=== PATIENT | male | born 1960 | race Caucasian/White ===

== ENCOUNTER → 2016-12-09 | Outpatient (CLI) | payer MEDICARE | LOC: RAD 09:41 | PROVIDERS: ATTEND Specialist | DX: C43.9 Malignant melanoma of skin, unspecified (principal) | CPT/HCPCS: 71260; 74177; 82565 ==

== ENCOUNTER → 2016-12-12 | Outpatient (CLI) | payer MEDICAID, MEDICARE | LOC: WI 07:29 | PROVIDERS: ATTEND Internal Medicine | DX: C43.70 Malignant melanoma of unspecified lower limb, including hip (principal) | CPT/HCPCS: 70553; A9577 ==

== ENCOUNTER → 2017-06-19 | Outpatient (CLI) | payer MEDICARE, MEDICAID ==
--- NOTE | 2017-06-19 10:52 | RADIOLOGY REPORT (SQ) ---
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 Images reviewed with lung, soft tissue and bone windows. Reconstructed coronal a nd sagittal MPR images reviewed. All images stored on PACS. CT scan of the abdomen and pelvis performed with intravenous and without oral contrastusing helical s noel technique with dynamic intravenous contrast injection. Images reviewed with lung, soft tissu e and bone windows. Reconstructed coronal and sagittal MPR images reviewed. Delayed images for eval uation of the urinary system also acquired and evaluated. All images stored on PACS. All CT scanners at this facility use dose modulation, iterative reconstruction, and/or weight based d osing when appropriate to reduce radiation dose to as low as reasonably achievable (ALARA). [facility]: Dose Right [facility]: CareDose [facility]: Dose Right [facility]: Teradose 4D [facility]: [employer] RADIATION DOSE: Up-to-date CT equipment and radiation dose reduction techniques were employed. CTDIv ol: 8.5 - 9.9 mGy. DLP: 1416 mGy-cm. . LIMITATIONS: None. FINDINGS: CHEST: LUNGS AND PLEURA: No opacities, nodules, masses. No pneumothorax. No effusions. HILAR AND MEDIASTINAL STRUCTURES: Index mediastinal lymph nodes are as follows: Right hilum less than 1 cm short axis unchanged Left hilum less than 1 cm short axis unchanged Prevascular/AP window 1.4 x 0.9 cm lymph node unchanged Sub- carinal 1.6 x 0.9 cm node (was 2.2 x 1.4 cm on 05/08/2016). HEART AND VASCULAR STRUCTURES: No aneurysm or dissection. No central pulmonary emboli. No pericardi al effusion. HARDWARE: None. THYROID AND OTHER SOFT TISSUES: No masses. No adenopathy. BONES: No significant finding. OTHER: No other significant finding. ABDOMEN AND PELVIS: LIVER: Normal size. No masses. No dilated ducts. Stable less than 1 cm sub- diaphragmatic left lobe liver cyst SPLEEN: Normal size. No focal lesions. PANCREAS: Diffuse fatty change. No masses. No significant calcifications. No adjacent inflammation o r peripancreatic fluid collections. Pancreatic duct not dilated. GALLBLADDER: No identified stones by CT criteria. No inflammatory changes to suggest cholecystitis. ADRENAL GLANDS: No significant masses or asymmetry. RIGHT KIDNEY AND URETER: No solid masses. No significant calcification. No hydronephrosis or hydroure ter. LEFT KIDNEY AND URETER: No solid masses. No significant calcification. No hydronephrosis or hydrouret er. AORTA AND VESSELS: No aneurysm. No dissection. Renal arteries, SMA, celiac without stenosis. RETROPERITONEUM: Cannot right upper quadrant mary hepatis, a 1.6 x 0.8 cm portacaval space lymph nod e is present on image 55 (was 1.8 x 1.3 cm on 05/08/2016). On today's scan, a 1.8 x 0.7 cm portacaval space lymph node is present on image 58 (was 2.2 x 1.1 cm on 05/08/2016). BOWEL AND PERITONEAL CAVITY: No masses or inflammatory changes. No free fluid or peritoneal masses. APPENDIX: Normal. ABDOMINAL WALL: No masses. No hernias. BONES: No significant or acute findings. Pelvis: No masses or adenopathy. No free fluid. Pelvic organs unremarkable IMPRESSION: Essentially normal CT of the chest. Essentially normal CT of the abdomen and pelvis TECHNICAL DOCUMENTATION: JOB ID: [id number] Quality ID # [id number]: Final reports with documentation of one or more dose reduction techniques (e.g., Au tomated exposure control, adjustment of the mA and/or kV according to patient size, use of iterative reconstruction technique) 2010 [employer]- All Rights Reserved
== END ==
LOC: RAD 09:37
PROVIDERS: ATTEND Internal Medicine
DX: C43.59 Malignant melanoma of other part of trunk (principal)
CPT/HCPCS: 71260; 74177

== ENCOUNTER → 2017-10-09 | Outpatient (CLI) | payer MEDICARE, MEDICAID ==
--- NOTE | 2017-10-09 12:27 | RADIOLOGY REPORT (SQ) ---
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 Images reviewed with lung, soft tissue and bone windows. Reconstructed coronal and sagittal MPR images reviewed. All images stored on PACS. All CT scanners at this facility use dose modulation, iterative reconstruction, and/or weight based d osing when appropriate to reduce radiation dose to as low as reasonably achievable (ALARA). [facility]: Dose Right [facility]: CareDose [facility]: Dose Right [facility]: Teradose 4D [facility]: [employer] CONTRAST TYPE AND DOSE: 91 cc not recorded here RENAL FUNCTION: Creatinine 0.9 RADIATION DOSE: . LIMITATIONS: None. FINDINGS: LUNGS AND PLEURA: No opacities, nodules, masses. No pneumothorax. No effusions. HILAR AND MEDIASTINAL STRUCTURES: No identified masses or abnormal nodes. HEART AND VASCULAR STRUCTURES: No aneurysm or dissection. No central pulmonary emboli. No pericardi al effusion. HARDWARE: None in the chest. UPPER ABDOMEN: See separate report of the CT of the abdomen. THYROID AND OTHER SOFT TISSUES: No masses. No adenopathy. BONES: No significant finding. OTHER: No other significant finding. IMPRESSION: NORMAL CT OF THE CHEST WITH IV CONTRAST. TECHNICAL DOCUMENTATION: JOB ID: [id number] Quality ID # [id number]: Final reports with documentation of one or more dose reduction techniques (e.g., Au tomated exposure control, adjustment of the mA and/or kV according to patient size, use of iterative reconstruction technique) 2010 [employer]- All Rights Reserved
--- NOTE | 2017-10-09 12:34 | RADIOLOGY REPORT (SQ) ---
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 No oral contrast. Images reviewed with lung, soft tissue, and bone windows. Reconstructed coronal and sagittal MPR images reviewed. Delayed images for evaluation of the urinary system also acquired. All images stored on PACS. All CT scanners at this facility use dose modulation, iterative reconstruction, and/or weight based d osing when appropriate to reduce radiation dose to as low as reasonably achievable (ALARA). [facility]: Dose Right [facility]: CareDose [facility]: Dose Right [facility]: Teradose 4D [facility]: [employer] CONTRAST TYPE AND DOSE: contrast/concentration: Isovue mg/ml; Total Contrast Delivered: 91.0 ml; To leti Saline Delivered: 70.0 ml RENAL FUNCTION: Creatinine 0.9 RADIATION DOSE: CT Rad equipment meets quality standard of care and radiation dose reduction techniq ues were employed. CTDIvol: 9.4 - 10.6 mGy. DLP: 1541 mGy-cm.. LIMITATIONS: None. FINDINGS: LOWER CHEST: See separate report of the CT of the chest. LIVER: There is a stable, small hepatic cyst. SPLEEN: Normal size. No focal lesions. PANCREAS: There is considerable fatty infiltration of the pancreas. There is no mass. GALLBLADDER: No identified stones by CT criteria. No inflammatory changes to suggest cholecystitis. ADRENAL GLANDS: No significant masses or asymmetry. RIGHT KIDNEY AND URETER: No solid masses. No significant calcifications. No hydronephrosis or hyd roureter. LEFT KIDNEY AND URETER: No solid masses. No significant calcifications. No hydronephrosis or hydr oureter. AORTA AND VESSELS: No aneurysm. No dissection. Renal arteries, SMA, celiac without stenosis. RETROPERITONEUM: No retroperitoneal adenopathy, hemorrhage or masses. BOWEL AND PERITONEAL CAVITY: No masses or inflammatory changes. No free fluid or peritoneal masses. APPENDIX: Normal. PELVIS: No mass. No free fluid. Normal bladder. ABDOMINAL WALL: No masses. No hernias. BONES: No significant or acute findings. OTHER: No other significant finding. IMPRESSION: NO SIGNIFICANT OR ACUTE FINDING IN THE ABDOMEN OR PELVIS ON CT SCAN WITH IV CONTRAST. TECHNICAL DOCUMENTATION: JOB ID: [id number] Quality ID # [id number]: Final reports with documentation of one or more dose reduction techniques (e.g., Au tomated exposure control, adjustment of the mA and/or kV according to patient size, use of iterative reconstruction technique) 2010 [employer]- All Rights Reserved
== END ==
LOC: RAD 08:53
PROVIDERS: ATTEND Internal Medicine
DX: C43.59 Malignant melanoma of other part of trunk (principal)
CPT/HCPCS: 71260; 74177; 82565

== ENCOUNTER 2018-03-11 13:40 | Emergency (ER) | payer MEDICARE, MEDICAID ==
[2018-03-11] MEDS ORDERED: NORMAL SALINE 1000 ML 1,000 ML IV ONE (14:25)
[2018-03-11] MEDS ORDERED: ONDANSETRON HCL INJ/PF 4 MG/2 ML SDV IV ONE (14:27)
--- NOTE | 2018-03-11 14:27 | ER Document Report ---
ED Medical Screen (RME) - General Chief Complaint: Abdominal Pain Stated Complaint: ABDOMINAL PAIN, KNEE PAIN, BACK PAIN Time Seen by Provider: 03/11/18 14:24 Mode of Arrival: Ambulatory Information source: Patient Notes: This is a 58-year-old man with a history of metastatic melanoma presents to the emergency room with generalized abdominal pain. Patient looks quite uncomfortable in triage. TRAVEL OUTSIDE OF THE [place] IN LAST 30 DAYS: No - Related Data Allergies/Adverse Reactions: No Known Allergies Allergy (Verified 03/11/18 13:41) Past Medical History - Social History Chew tobacco use (# tins/day): No Frequency of alcohol use: None Drug Abuse: None - Past Medical History Cardiac Medical History: Reports: Hx Hypertension Denies: Hx Coronary Artery Disease, Hx Heart Attack Pulmonary Medical History: Reports: Hx COPD Denies: Hx Asthma, Hx Bronchitis, Hx Pneumonia Neurological Medical History: Reports: Hx Seizures - on meds since toddler age, last seizure 03/16/09. Denies: Hx Cerebrovascular Accident Renal/ Medical History: Denies: Hx Peritoneal Dialysis GI Medical History: Reports: Hx Gastroesophageal Reflux Disease Musculoskeltal Medical History: Reports Hx Arthritis Psychiatric Medical History: Reports: Hx Depression Past Surgical History: Reports: Hx Orthopedic Surgery - Left first toe amputation. Rotator cuff surgery.. Denies: Hx Pacemaker - Immunizations Hx Diphtheria, Pertussis, Tetanus Vaccination: Yes - "5 years ago" Physical Exam - Vital signs Vitals: Temp Pulse Resp BP Pulse Ox 97.9 F 84 18 164/100 H 98 03/11/18 13:45 03/11/18 13:45 03/11/18 13:45 03/11/18 13:45 03/11/18 13:45 Course - Vital Signs Vital signs: Temp Pulse Resp BP Pulse Ox 97.9 F 84 18 164/100 H 98 03/11/18 13:45 03/11/18 13:45 03/11/18 13:45 03/11/18 13:45 03/11/18 13:45
[2018-03-11 14:55] LABS: HEMATOCRIT 49.2 % (37.9-51.0); HEMOGLOBIN 16.8 g/dL (13.5-17.0); MEAN CORPUSCULAR HEMOGLOBIN 28.4 pg (27.0-33.4); MEAN CORPUSCULAR HGB CONC 34.2 g/dL (32.0-36.0); MEAN CORPUSCULAR VOLUME 83 fl (80-97); PLATELET COUNT 153 10^3/uL (150-450); RED BLOOD COUNT 5.94 10^6/uL (4.35-5.55); RED CELL DISTRIBUTION WIDTH 13.1 % (11.5-14.0); WHITE BLOOD COUNT 11.5 10^3/uL (4.0-10.5)
[2018-03-11 15:03] LABS: INTERNATIONAL RATION (INR) 1.12; PROTHROMBIN TIME 14.9 SEC (11.4-15.4)
[2018-03-11 15:11] LABS: ALANINE AMINOTRANSFERASE 35 U/L (21-72); ALBUMIN 4.8 g/dL (3.5-5.0); ALKALINE PHOSPHATASE 223 U/L (38-126); ANION GAP 16 (5-19); ASPARTATE AMINO TRANSFERASE 66 U/L (17-59); BILIRUBIN,DIRECT 0.3 mg/dL (0.0-0.4); BILIRUBIN,TOTAL 0.6 mg/dL (0.2-1.3); BLOOD UREA NITROGEN 16 mg/dL (7-20); CALCIUM 10.5 mg/dL (8.4-10.2); CARBON DIOXIDE 27 mmol/L (22-30); CHLORIDE 102 mmol/L (98-107); GLUCOSE 111 mg/dL (75-110); POTASSIUM 4.2 mmol/L (3.6-5.0); SODIUM 145.1 mmol/L (137-145); TOTAL PROTEIN 8.3 g/dL (6.3-8.2)
[2018-03-11 15:20] LABS: ABSOLUTE LYMPHOCYTES# (MANUAL) 0.5 10^3/uL (0.5-4.7); ABSOLUTE MONOCYTES # (MANUAL) 0.3 10^3/uL (0.1-1.4); ABSOLUTE NEUTROPHILS# (MANUAL) 10.6 10^3/uL (1.7-8.2); BAND NEUTROPHILS % (MANUAL) 7 % (3-5); BASOPHILS % (MANUAL) 1 % (0-2); EOSINOPHILS % (MANUAL) 0 % (0-6); LYMPHOCYTES % (MANUAL) 4 % (13-45); MONOCYTES % (MANUAL) 3 % (3-13); SEGMENTED NEUTROPHILS % (MAN) 85 % (42-78); TOTAL CELLS COUNTED 100
[2018-03-11 15:21] LABS: PLATELET COMMENT ADEQUATE; RBC MORPHOLOGY COMMENT NORMO-CYTIC/CHROMIC
--- NOTE | 2018-03-11 15:55 | ER Document Report ---
ED GI/ - General Chief Complaint: Abdominal Pain Stated Complaint: ABDOMINAL PAIN, KNEE PAIN, BACK PAIN Time Seen by Provider: 03/11/18 14:24 Mode of Arrival: Ambulatory Information source: Patient, Relative TRAVEL OUTSIDE OF THE [place] IN LAST 30 DAYS: No - HPI Patient complains to provider of: Abdominal pain Onset: Other - 2 WEEKS Timing/Duration: Gradual Quality of pain: Cramping, Fullness Severity at maximum: Severe Severity in ED: Moderate Context: Other - PCP SUSPECTS CONSTIPATION Location: LUQ, LLQ, RLQ Associated symptoms: Constipation, Nausea, Radiates to back, Other - RADIATES TO [facility] denies: Chest pain, Vomiting Similar symptoms previously: No Recently seen / treated by doctor: Yes - PCP - Related Data Allergies/Adverse Reactions: No Known Allergies Allergy (Verified 03/11/18 13:41) Past Medical History - General Information source: Patient - Social History Smoking Status: Former Smoker Cigarette use (# per day): No Chew tobacco use (# tins/day): No Frequency of alcohol use: None Drug Abuse: None Lives with: Spouse/Significant other Family History: Reviewed & Not Pertinent Patient has suicidal ideation: No Patient has homicidal ideation: No - Past Medical History Cardiac Medical History: Reports: Hx Hypertension Denies: Hx Coronary Artery Disease, Hx Heart Attack Pulmonary Medical History: Reports: Hx COPD Denies: Hx Asthma, Hx Bronchitis, Hx Pneumonia Neurological Medical History: Reports: Hx Seizures - on meds since toddler age, last seizure 03/16/09. Denies: Hx Cerebrovascular Accident Endocrine Medical History: Reports: None Renal/ Medical History: Reports: None. Denies: Hx Peritoneal Dialysis Malignancy Medical History: Reports Hx Skin Cancer - MELANOMA, METASTATIC, SUCCESSFULLY TREATED GI Medical History: Reports: Hx Gastroesophageal Reflux Disease Musculoskeltal Medical History: Reports Hx Arthritis Psychiatric Medical History: Reports: Hx Depression Past Surgical History: Reports: Hx Orthopedic Surgery - Left first toe amputation. Rotator cuff surgery.. Denies: Hx Pacemaker - Immunizations Hx Diphtheria, Pertussis, Tetanus Vaccination: Yes - "5 years ago" Review of Systems - Review of Systems Constitutional: No symptoms reported EENT: No symptoms reported Cardiovascular: No symptoms reported Respiratory: No symptoms reported Gastrointestinal: See HPI Genitourinary: No symptoms reported Musculoskeletal: No symptoms reported Skin: No symptoms reported Neurological/Psychological: No symptoms reported Physical Exam - Vital signs Vitals: Temp Pulse Resp BP Pulse Ox 97.9 F 84 18 164/100 H 98 03/11/18 13:45 03/11/18 13:45 03/11/18 13:45 03/11/18 13:45 03/11/18 13:45 Interpretation: Hypertensive. No: Tachycardic, Tachypneic - General General appearance: Appears well, Alert In distress: None - HEENT Head: Normocephalic Eyes: Normal Conjunctiva: Normal Ears: Normal Nasal: Normal Mouth/Lips: Normal Mucous membranes: Normal - Respiratory Respiratory status: No respiratory distress - Cardiovascular Rhythm: Regular - Abdominal Inspection: Normal Distension: Distended - MILDLY Bowel sounds: Hypoactive Tenderness: Tender - SLIGHT, GENERALIZED - Back Back: Normal, Nontender - NONTENDER OVER AREA OF COMPLAINT. - Extremities General upper extremity: Normal inspection General lower extremity: Normal inspection - Neurological Neuro grossly intact: Yes Cognition: Normal Orientation: AAOx4 - Psychological Associated symptoms: Normal affect, Normal mood - Skin Skin Temperature: Warm Skin Moisture: Dry Skin Color: Normal Skin Turgor: Elastic Course - Vital Signs Vital signs: Temp Pulse Resp BP Pulse Ox 97.9 F 84 18 163/89 H 100 03/11/18 18:09 03/11/18 18:09 03/11/18 18:09 03/11/18 18:09 03/11/18 18:09 - Laboratory Result Diagrams: 03/11/18 14:36 03/11/18 14:36 Laboratory results interpreted by me: 03/11/18 03/11/18 14:36 14:36 WBC 11.5 H RBC 5.94 H Seg Neuts % (Manual) 85 H Band Neutrophils % 7 H Lymphocytes % (Manual) 4 L Abs Neuts (Manual) 10.6 H Sodium 145.1 H Glucose 111 H Calcium 10.5 H AST 66 H Alkaline Phosphatase 223 H Total Protein 8.3 H - Consults DR. HEATH Time consulted: 18:16 Consulted provider: follow-up in office Discharge - Discharge Clinical Impression: Abdominal pain Qualifiers: Abdominal location: lower abdomen, unspecified Qualified Code(s): R10.30 - Lower abdominal pain, unspecified Constipation Qualifiers: Constipation type: unspecified constipation type Qualified Code(s): K59.00 - Constipation, unspecified Condition: Stable Disposition: HOME, SELF-CARE Instructions: Abdominal Pain ([facility]), Bulk Laxatives Additional Instructions: CONTINUE PRESENT MEDS. CONTINUE MIRALAX AND SENOKOT. IN ADDITION, BEGIN TAKING A BULK-FORMING LAXATIVE SUCH CITRUCEL OR METAMUCIL. FOLLOW UP WITH DR. HEATH, CALL OFFICE TOMORROW (MONDAY) FOR APPOINTMENT. Referrals: BENITO HEATH MD [Primary Care Provider] - Follow up in 3-5 days
--- NOTE | 2018-03-11 16:20 | EKG REPORT ---
SEVERITY:- NORMAL ECG - SINUS RHYTHM : Confirmed by: Shahida Knight 11-Mar-2018 16:19:31
--- NOTE | 2018-03-11 17:21 | RADIOLOGY REPORT (SQ) ---
EXAM DESCRIPTION: CHEST SINGLE VIEW COMPLETED DATE/TIME: 03/11/2018 5:12 pm REASON FOR STUDY: abdominal pain COMPARISON: 11/21/2012 EXAM PARAMETERS: NUMBER OF VIEWS: One view. TECHNIQUE: Single frontal radiographic view of the chest acquired. RADIATION DOSE: NA LIMITATIONS: None. FINDINGS: LUNGS AND PLEURA: No opacities, masses or pneumothorax. No pleural effusion. MEDIASTINUM AND HILAR STRUCTURES: No masses. Contour normal. HEART AND VASCULAR STRUCTURES: Heart normal in size. Normal vasculature. BONES: No acute findings. HARDWARE: None in the chest. OTHER: No other significant finding. IMPRESSION: NO ACUTE RADIOGRAPHIC FINDING IN THE CHEST. TECHNICAL DOCUMENTATION: JOB ID: [id number] [employer]- All Rights Reserved Reading location - IP/workstation name: [email or web address]
--- NOTE | 2018-03-11 17:49 | RADIOLOGY REPORT (SQ) ---
EXAM DESCRIPTION: CT ABD/PELVIS WITH IV ORAL COMPLETED DATE/TIME: 03/11/2018 5:32 pm REASON FOR STUDY: abd pain COMPARISON: 12/26/2013 TECHNIQUE: CT scan of the abdomen and pelvis performed using helical scanning technique with dynamic intravenous contrast injection. No oral contrast. Images reviewed with lung, soft tissue, and bone windows. Reconstructed coronal and sagittal MPR images reviewed. Delayed images for evaluation of the urinary system also acquired. All images stored on PACS. All CT scanners at this facility use dose modulation, iterative reconstruction, and/or weight based d osing when appropriate to reduce radiation dose to as low as reasonably achievable (ALARA). [facility]: Dose Right [facility]: CareDose [facility]: Dose Right [facility]: Teradose 4D [facility]: [employer] CONTRAST TYPE AND DOSE: contrast/concentration: Isovue 370.00 mg/ml; Total Contrast Delivered: 86.0 ml; Total Saline Delivered: 69.0 ml RENAL FUNCTION: GFR > 60. RADIATION DOSE: CT Rad equipment meets quality standard of care and radiation dose reduction techniq ues were employed. CTDIvol: 8.5 - 12.1 mGy. DLP: 1129 mGy-cm.. LIMITATIONS: None. FINDINGS: LOWER CHEST: No significant findings. No nodules or infiltrates. LIVER: Normal size. Similar scattered cysts. No dilated ducts. SPLEEN: Normal size. No focal lesions. PANCREAS: No masses. No significant calcifications. No adjacent inflammation or peripancreatic fluid collections. Pancreatic duct not dilated. GALLBLADDER: No identified stones by CT criteria. No inflammatory changes to suggest cholecystitis. ADRENAL GLANDS: No significant masses or asymmetry. RIGHT KIDNEY AND URETER: No solid masses. No significant calcifications. No hydronephrosis or hyd roureter. LEFT KIDNEY AND URETER: No solid masses. No significant calcifications. No hydronephrosis or hydr oureter. AORTA AND VESSELS: No aneurysm. No dissection. Renal arteries, SMA, celiac without stenosis. RETROPERITONEUM: No retroperitoneal adenopathy, hemorrhage or masses. BOWEL AND PERITONEAL CAVITY: No masses or inflammatory changes. No free fluid or peritoneal masses. APPENDIX: Normal. PELVIS: Similar prostatic enlargement. No free fluid. Normal bladder. ABDOMINAL WALL: No masses. No hernias. BONES: New lytic areas are noted in the T9 vertebral body left pedicle and lateral mass. No fracture identified. OTHER: No other significant finding. IMPRESSION: New lytic areas are noted in the T9 vertebral body left pedicle and lateral mass. No acute inflammatory changes in the abdomen or pelvis. TECHNICAL DOCUMENTATION: JOB ID: [id number] Quality ID # [id number]: Final reports with documentation of one or more dose reduction techniques (e.g., Au tomated exposure control, adjustment of the mA and/or kV according to patient size, use of iterative reconstruction technique) 2010 [employer]- All Rights Reserved Reading location - IP/workstation name: [email or web address]
[2018-03-11 18:11] VITALS: BP 163/89
== END 2018-03-11 18:28 | disposition home or self-care (01) ==
LOC: ER 13:40
DX: K59.00 Constipation, unspecified (principal); R10.30 Lower abdominal pain, unspecified; M25.561 Pain in right knee; M54.9 Dorsalgia, unspecified; R11.0 Nausea; Z87.891 Personal history of nicotine dependence; I10 Essential (primary) hypertension; J44.9 Chronic obstructive pulmonary disease, unspecified
CPT/HCPCS: 93005; 99285; 96361; 96374; 36415; 85025; 85610; 80053; 71045; 74177; 93010; J2405; J7030

== ENCOUNTER → 2018-03-13 | Outpatient (CLI) | payer MEDICARE, MEDICAID ==
--- NOTE | 2018-03-14 10:56 | RADIOLOGY REPORT (SQ) ---
EXAM DESCRIPTION: PET CT WHOLE BODY COMPLETED DATE/TIME: 03/14/2018 9:15 am REASON FOR STUDY: C43.70 MALIGNANT MELANOMA OF UNSPECIFIED LOWER LIMB, INCLUDING HIP C43.70 MALIGNA NT MELANOMA OF UNSPECIFIED LOWER LIMB, INCLUDI COMPARISON: PET-CT 05/08/2016 CT abdomen pelvis 03/11/2018 CT chest abdomen pelvis 10/09/2017, 06/19/2017 RADIONUCLIDE AND DOSE: 11.5 mCi F18 FDG The route of agent administration: Intravenous FASTING BLOOD SUGAR: 129 mg/dl CONTRAST TYPE AND DOSE: No CT contrast given. TECHNIQUE: Blood glucose level was verified. Above dose of FDG was injected intravenously. 2-D seg mented attenuation correction images were obtained through the entire body. Noncontrast CT images we re obtained for attenuation correction and fusion with emission images. CT images were performed wit hout oral or intravenous contrast and are not sensitive for parenchymal lesions. A series of overlap ping emission PET images were obtained. Images reviewed and manipulated at independent work station by the radiologist. Images stored on PACS. LIMITATIONS: None. FINDINGS: HEAD AND NECK: No areas of abnormal metabolic activity in the soft tissues of the head and neck. CHEST: Left posterior shoulder skin lesion measures 3.9 x 2 cm with SUV 2.0. A 12 mm nodule is present in the right upper lobe axial image 122 with SUV 3.4. A 2 x 1 cm right upper lobe nodule is present on axial image 129 with SUV of 2.3. No metabolically active hilar or mediastinal lymph nodes are present. ABDOMEN AND PELVIS: No areas of abnormal metabolic activity in the abdomen or pelvis. Expected physi ologic activity is present in the genitourinary system and bowel. LOWER EXTREMITIES: No areas of abnormal metabolic activity in the soft tissues of the lower extremiti es. BONES: The left T9 pedicle exhibits a lytic destructive permeative pattern with SUV 3.0. The right L3 pedicle exhibits a lytic permeative pattern with SUV 5.6. ADDITIONAL CT FINDINGS: Mild gynecomastia. Non metabolically active skin lesions are present along t he anterior abdominal wall at about the level of the umbilicus OTHER: Liver background activity 2.2 SUV. Blood pool background activity 1.7 SUV IMPRESSION: New right upper lobe metabolically active lung nodules Lytic permeative pattern of bony destruction in the left T9 pedicle and right L3 pedicle correlates w ith increased metabolic activity on PET worrisome for recurrent melanoma. Persistent left posterior upper back skin lesion 3.9 x 2 cm in size with minimal activity at baseline . TECHNICAL DOCUMENTATION: JOB ID: [id number] [employer]- All Rights Reserved Reading location - IP/workstation name: [email or web address]
== END ==
LOC: RAD 15:30
PROVIDERS: ATTEND Internal Medicine
DX: R91.8 Other nonspecific abnormal finding of lung field (principal); C43.70 Malignant melanoma of unspecified lower limb, including hip
CPT/HCPCS: 78816; A9552

== ENCOUNTER → 2018-03-16 | Outpatient (CLI) | payer MEDICARE, MEDICAID ==
--- NOTE | 2018-03-18 13:00 | RADIOLOGY REPORT (SQ) ---
EXAM DESCRIPTION: MRI THORACIC SPINE COMBO COMPLETED DATE/TIME: 03/16/2018 8:21 pm REASON FOR STUDY: MALIGNANT MELANOMA OF UNSPECIFIED LOWER LIMB,INCLUDING HIP C43.70 MALIGNANT MELAN JOIE OF UNSPECIFIED LOWER LIMB, INCLUDI COMPARISON: None. Correlation: Recent PET-CT. TECHNIQUE: Sagittal and Axial imaging includes T1, T2, STIR and gradient echo sequences. T1 post ga dolinium sequences. CONTRAST TYPE AND DOSE: 15 mL Multihance. RENAL FUNCTION: GFR > 60. LIMITATIONS: Motion artifact. FINDINGS: There is extensive marrow signal abnormality consistent with metastatic disease. Posterio r expansile lesion to left of midline at T9 extending into the left pedicle. There is narrowing of t he spinal canal and cord contact to left of midline. No acute pathologic fracture. No abnormal enha ncement in the cord. IMPRESSION: Diffuse skeletal metastasis. Expansile lesion T9 contacting the cord. No pathologic fr acture. TECHNICAL DOCUMENTATION: JOB ID: [id number] [employer]- All Rights Reserved Reading location - IP/workstation name: [email or web address]
--- NOTE | 2018-03-18 13:16 | RADIOLOGY REPORT (SQ) ---
EXAM DESCRIPTION: MRI LUMBAR SPINE COMBO COMPLETED DATE/TIME: 03/16/2018 8:21 pm REASON FOR STUDY: MALIGNANT MELANOMA OF UNSPECIFIED LOWER LIMB,INCLUDING HIP C43.70 MALIGNANT MELAN JOIE OF UNSPECIFIED LOWER LIMB, INCLUDI COMPARISON: None. Correlation: Recent PET-CT. TECHNIQUE: Sagittal and Axial imaging includes T1, T1 post gadolinium, T2, STIR and gradient echo se quences. Coronal T2/HASTE imaging. CONTRAST TYPE AND DOSE: 15 mL Multihance. RENAL FUNCTION: GFR > 60. LIMITATIONS: None. FINDINGS: There is diffuse abnormal signal consistent with bone metastasis. There is no evidence of pathologic fracture. There is an expansile lesion to right of midline near the L3 pedicle which is narrowing the canal approximately 25%. No enhancing intramedullary lesions. Mild degenerative hawkins es L1-2 through L3-4. Facet arthropathy L4-5 and L5-S1. IMPRESSION: Bone metastasis. Expansile lesion right L3 pedicle has a dural component which is narro wing the spinal canal approximate 25%. No evidence of pathologic fracture. TECHNICAL DOCUMENTATION: JOB ID: [id number] [employer]- All Rights Reserved Reading location - IP/workstation name: [email or web address]
== END ==
LOC: RAD 18:02
PROVIDERS: ATTEND Internal Medicine
DX: C43.70 Malignant melanoma of unspecified lower limb, including hip (principal); C79.51 Secondary malignant neoplasm of bone
CPT/HCPCS: 72157; 72158

== ENCOUNTER 2018-03-23 07:33 | Day surgery (SDC) | payer MEDICARE, MEDICAID ==
[2018-03-23 09:06] LABS: HEMATOCRIT 43.2 % (37.9-51.0); HEMOGLOBIN 14.7 g/dL (13.5-17.0); MEAN CORPUSCULAR HEMOGLOBIN 28.7 pg (27.0-33.4); MEAN CORPUSCULAR HGB CONC 33.9 g/dL (32.0-36.0); MEAN CORPUSCULAR VOLUME 85 fl (80-97); PLATELET COUNT 114 10^3/uL (150-450); RED BLOOD COUNT 5.11 10^6/uL (4.35-5.55); RED CELL DISTRIBUTION WIDTH 13.7 % (11.5-14.0); WHITE BLOOD COUNT 24.1 10^3/uL (4.0-10.5)
[2018-03-23 09:21] LABS: BLOOD UREA NITROGEN 33 mg/dL (7-20)
[2018-03-23 09:25] LABS: INTERNATIONAL RATION (INR) 1.09; PROTHROMBIN TIME 14.7 SEC (11.4-15.4)
[2018-03-23] MEDS ORDERED: MIDAZOLAM 2 MG/2 ML INJ ONE (10:45)
[2018-03-23] MEDS ORDERED: LIDOCAINE 1% INJ-PF (10 MG/ML) 30 ML SDV ONE (10:46)
[2018-03-23] MEDS ORDERED: FENTANYL CITRATE INJ/PF 100 MCG/2 ML AMPUL ONE (10:46)
--- NOTE | 2018-03-23 13:57 | RADIOLOGY REPORT (SQ) ---
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 CT Fluoroscopy Time: 8.[address] scanners at this facility use dose modulation, iterative reconstruction, and/or weight based d osing when appropriate to reduce radiation dose to as low as reasonably achievable (ALARA). [facility]: Dose Right [facility]: CareDose [facility]: Dose Right [facility]: Teradose 4D [facility]: [employer] RADIATION DOSE: mGy. FINDINGS: After obtaining informed consent and explaining the risks and benefits of conscious sedati on,the patient agreed to the procedure. Prior to the procedure, a time out was performed to verify th e patient's identity and planned procedure. IV sedation was administered and physician direction by the registered nurse using 0.5 milligrams of Versed and 25 micrograms of fentanyl, for conscious sedation. Physiologic monitoring was provided bef ore, during, and after sedation. The total sedation time was 30 minutes. Documentation face to face time, the performing proceduralist, spent monitoring the patient: [address] scanning was performed to localize the percutaneous site for the biopsy approach. After sterile skin prep and local lidocaine for skin and deep tissue anesthesia, an 18 gauge coaxial biopsy needle was used to obtain 4 cores of tissue. Jacqueline from cytology was present, confirmed the p resence of malignant cells on touch prep slides. The biopsy tissue was submitted to the lab in formal in. There were no immediate complications. Pathology is pending at the time of dictation. IMPRESSION: CT GUIDED BIOPSY OF THE RIGHT L3 LYTIC LESION ALONG THE PEDICLE PERFORMED WITHOUT IMMED IATE COMPLICATION. PATHOLOGY PENDING. IV CONSCIOUS SEDATION COMMENT: Quality ID 145: Final reports for procedures using fluoroscopy that document radiation exp osure indices, or exposure time and number of fluorographic images (if radiation exposure indices are not available) Patient medication list reviewed: Yes- Quality ID# [id number]:Eligible professional attests to documenting i n the medical record they obtained, updated, or reviewed the patient's current medications.. TECHNICAL DOCUMENTATION: JOB ID: [id number] Quality ID# 436: Final reports with documentation of one or more dose reduction techniques (e.g., Aut omated exposure control, adjustment of the mA and/or kV according to patient size, use of iterative r econstruction technique) 2010 [employer]- All Rights Reserved Reading location - IP/workstation name: [email or web address]
--- NOTE | 2018-03-23 13:57 | RADIOLOGY REPORT (SQ) ---
EXAM DESCRIPTION: CT BIOPSY BONE DEEP; CT NEEDLE PLACEMENT COMPLETED DATE/TIME: 03/23/2018 12:05 pm REASON FOR STUDY: MALIGNANT MELANOMA OF UNSPECIFIED LOWER LIMB, INCLUDING HIP C43.70 MALIGNANT NESTOR NOMA OF UNSPECIFIED LOWER LIMB, INCLUDI Z79.01 RN LACTATION (CURRENT) USE OF ANTICOAGULANTS COMPARISON: MRI lumbar spine 03/16/2018 PET-CT 03/13/2018 TECHNIQUE: CT guided biopsy of the right L3 pedicle and para pedicular soft tissues performed with c onscious sedation. CT Fluoroscopy Time: 8.[address] scanners at this facility use dose modulation, iterative reconstruction, and/or weight based d osing when appropriate to reduce radiation dose to as low as reasonably achievable (ALARA). [facility]: Dose Right [facility]: CareDose [facility]: Dose Right [facility]: Teradose 4D [facility]: [employer] RADIATION DOSE: mGy. FINDINGS: After obtaining informed consent and explaining the risks and benefits of conscious sedati on,the patient agreed to the procedure. Prior to the procedure, a time out was performed to verify th e patient's identity and planned procedure. IV sedation was administered and physician direction by the registered nurse using 0.5 milligrams of Versed and 25 micrograms of fentanyl, for conscious sedation. Physiologic monitoring was provided bef ore, during, and after sedation. The total sedation time was 30 minutes. Documentation face to face time, the performing proceduralist, spent monitoring the patient: [address] scanning was performed to localize the percutaneous site for the biopsy approach. After sterile skin prep and local lidocaine for skin and deep tissue anesthesia, an 18 gauge coaxial biopsy needle was used to obtain 4 cores of tissue. Jacqueline from cytology was present, confirmed the p resence of malignant cells on touch prep slides. The biopsy tissue was submitted to the lab in formal in. There were no immediate complications. Pathology is pending at the time of dictation. IMPRESSION: CT GUIDED BIOPSY OF THE RIGHT L3 LYTIC LESION ALONG THE PEDICLE PERFORMED WITHOUT IMMED IATE COMPLICATION. PATHOLOGY PENDING. IV CONSCIOUS SEDATION COMMENT: Quality ID 145: Final reports for procedures using fluoroscopy that document radiation exp osure indices, or exposure time and number of fluorographic images (if radiation exposure indices are not available) Patient medication list reviewed: Yes- Quality ID# [id number]:Eligible professional attests to documenting i n the medical record they obtained, updated, or reviewed the patient's current medications.. TECHNICAL DOCUMENTATION: JOB ID: [id number] Quality ID# 436: Final reports with documentation of one or more dose reduction techniques (e.g., Aut omated exposure control, adjustment of the mA and/or kV according to patient size, use of iterative r econstruction technique) 2010 [employer]- All Rights Reserved Reading location - IP/workstation name: [email or web address]
[2018-03-23 14:12] VITALS: BP 129/76
== END 2018-03-23 14:00 | disposition home or self-care (01) ==
LOC: RAD 07:33
PROVIDERS: ATTEND Internal Medicine
DX: C79.51 Secondary malignant neoplasm of bone (principal); Z79.01 Long term (current) use of anticoagulants
CPT/HCPCS: 36415; 84520; 82565; 85027; 85610; 85730; 88342 ×2; 88341 ×2; 88305 ×2; 77012; 20225; J2250; J3010; J3490

== ENCOUNTER 2018-03-27 11:06 | Emergency (ER) | payer MEDICARE, MEDICAID ==
--- NOTE | 2018-03-27 11:37 | ER Document Report ---
ED Medical Screen (RME) - General Chief Complaint: Fall Stated Complaint: KEEPS FALLING Time Seen by Provider: 03/27/18 11:29 Notes: RAPID MEDICAL EVALUATION DISCLOSURE I have seen this patient as part of a Rapid Medical Evaluation and, if applicable, placed any initially appropriate orders. The patient will be seen and fully evaluated, including a full history and physical exam, by a provider ( in Main ED or Fast Track) when a room becomes available. 58-year-old male PMH "spine tumors" here with complaints of his right leg "giving out on me". states that the symptoms started yesterday. He fell several times because his leg kept giving out on him around dinnertime. It happened again this morning. He has not had any upper extremity weakness headache numbness tingling. They report he has melanoma and it has spread to his spine so they are concerned he may have some new lesions. EXAM Strength 5/5 with intact sensation BLEs No midline spine tenderness TRAVEL OUTSIDE OF THE [place] 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 Denies: Hx Cerebrovascular Accident Renal/ Medical History: Denies: Hx Peritoneal Dialysis Malignancy Medical History: Reports Hx Skin Cancer - MELANOMA, METASTATIC, SUCCESSFULLY TREATED GI Medical History: Reports: Hx Gastroesophageal Reflux Disease Musculoskeltal Medical History: Reports Hx Arthritis - GENERALIZED Psychiatric Medical History: Reports: Hx Depression Past Surgical History: Reports: Hx Orthopedic Surgery - Left first toe amputation. Rotator cuff surgery.. Denies: Hx Pacemaker - Immunizations Hx Diphtheria, Pertussis, Tetanus Vaccination: Yes - UNSURE History of Influenza Vaccine for 07/2017 - 12/2017 Season: No Physical Exam - Vital signs Vitals: Temp Pulse Resp BP Pulse Ox 97.9 F 83 22 H 128/82 H 93 03/27/18 11:12 03/27/18 11:12 03/27/18 11:12 03/27/18 11:12 03/27/18 11:12 Course - Vital Signs Vital signs: Temp Pulse Resp BP Pulse Ox 97.9 F 83 22 H 128/82 H 93 03/27/18 11:12 03/27/18 11:12 03/27/18 11:12 03/27/18 11:12 03/27/18 11:12 Doctor's Discharge - Discharge Referrals: KIRILL TREVINO FNP [Primary Care Provider] - Follow up as needed
[2018-03-27 12:05] LABS: HEMATOCRIT 42.9 % (37.9-51.0); HEMOGLOBIN 14.6 g/dL (13.5-17.0); MEAN CORPUSCULAR HEMOGLOBIN 28.6 pg (27.0-33.4); MEAN CORPUSCULAR HGB CONC 34.1 g/dL (32.0-36.0); MEAN CORPUSCULAR VOLUME 84 fl (80-97); RED BLOOD COUNT 5.11 10^6/uL (4.35-5.55); RED CELL DISTRIBUTION WIDTH 14.2 % (11.5-14.0)
--- NOTE | 2018-03-27 12:26 | RADIOLOGY REPORT (SQ) ---
EXAM DESCRIPTION: T SPINE AP/LAT COMPLETED DATE/TIME: 03/27/2018 12:15 pm REASON FOR STUDY: R leg weakness and spine tumors; eval new lsn COMPARISON: Previous MRIs and CT scans. None. NUMBER OF VIEWS: Two views. TECHNIQUE: AP and lateral radiographic images acquired of the thoracic spine. LIMITATIONS: None. FINDINGS: MINERALIZATION: Normal. ALIGNMENT: Mild scoliotic angulation mid thoracic spine convex to the left. VERTEBRAE: No fracture or bone lesion. Maintained height, normal segmentation. DISCS: No significant loss of height or significant narrowing. No large osteophytes. HARDWARE: None in the spine. MEDIASTINUM AND SOFT TISSUES: Normal heart size and aortic contour. No soft tissue abnormality. VISUALIZED LUNG PANDA: Clear. OTHER: No other significant finding. IMPRESSION: No lytic or blastic changes and no compression fractures. Mild scoliotic angulation. M etastatic involvement described on previous MRI not identified by radiographs. TECHNICAL DOCUMENTATION: JOB ID: [id number] [employer]- All Rights Reserved Reading location - IP/workstation name: [email or web address]
[2018-03-27 12:31] LABS: ALANINE AMINOTRANSFERASE 100 U/L (21-72); ALBUMIN 3.2 g/dL (3.5-5.0); ALKALINE PHOSPHATASE 147 U/L (38-126); ANION GAP 7 (5-19); ASPARTATE AMINO TRANSFERASE 85 U/L (17-59); BILIRUBIN,DIRECT 0.3 mg/dL (0.0-0.4); BILIRUBIN,TOTAL 0.4 mg/dL (0.2-1.3); BLOOD UREA NITROGEN 24 mg/dL (7-20); CALCIUM 8.9 mg/dL (8.4-10.2); CARBON DIOXIDE 27 mmol/L (22-30); CHLORIDE 101 mmol/L (98-107); GLUCOSE 138 mg/dL (75-110); PHOSPHORUS 3.7 mg/dL (2.5-4.5); PLATELET COUNT 67 10^3/uL (150-450); POTASSIUM 4.7 mmol/L (3.6-5.0); SODIUM 134.5 mmol/L (137-145); TOTAL PROTEIN 5.7 g/dL (6.3-8.2)
--- NOTE | 2018-03-27 12:33 | RADIOLOGY REPORT (SQ) ---
EXAM DESCRIPTION: L SPINE WHOLE COMPLETED DATE/TIME: 03/27/2018 12:15 pm REASON FOR STUDY: R leg weakness and spine tumors; eval new lsn COMPARISON: None. NUMBER OF VIEWS: Five views including obliques. TECHNIQUE: AP, lateral, oblique, and sacral radiographic images acquired of the lumbar spine. LIMITATIONS: None. FINDINGS: MINERALIZATION: Normal. SEGMENTATION: Normal. No transitional anatomy. ALIGNMENT: Normal. VERTEBRAE: Maintained height. No fracture or worrisome bone lesion. DISCS: Preserved height. No significant osteophytes or end plate irregularity. POSTERIOR ELEMENTS: Poorly defined destructive lesion involving the pedicle of L3 on the right as not ed on previous MRI. HARDWARE: None in the spine. PARASPINAL SOFT TISSUES: Normal. PELVIS: Intact as visualized. No fractures or worrisome bone lesions. SI joints intact. OTHER: No other significant finding. IMPRESSION: Poorly defined pedicle L3 on the right related to tumor involvement as noted on previous MRI. No lytic or blastic changes and no compression fractures involving the vertebral bodies. TECHNICAL DOCUMENTATION: JOB ID: [id number] [employer]- All Rights Reserved Reading location - IP/workstation name: [email or web address]
[2018-03-27 12:34] LABS: ABSOLUTE LYMPHOCYTES# (MANUAL) 1.7 10^3/uL (0.5-4.7); ABSOLUTE NEUTROPHILS# (MANUAL) 16.3 10^3/uL (1.7-8.2); BAND NEUTROPHILS % (MANUAL) 6 % (3-5); BASOPHILS % (MANUAL) 0 % (0-2); EOSINOPHILS % (MANUAL) 0 % (0-6); LYMPHOCYTES % (MANUAL) 8 % (13-45); METAMYELOCYTES % (MANUAL) 2 % (0); MONOCYTES % (MANUAL) 5 % (3-13); SEGMENTED NEUTROPHILS % (MAN) 77 % (42-78); TOTAL CELLS COUNTED 100
[2018-03-27 12:41] LABS: MYELOCYTES % (MANUAL) 1 % (0)
[2018-03-27 12:43] LABS: HYPOCHROMASIA SLIGHT; PLATELET COMMENT DECREASED; TOXIC GRANULATION SLIGHT
--- NOTE | 2018-03-27 15:08 | ER Document Report ---
ED Fall - General Chief Complaint: Fall Stated Complaint: KEEPS FALLING Time Seen by Provider: 03/27/18 11:29 Mode of Arrival: Ambulatory Information source: Patient, Relative Notes: Patient is a 58-year-old male with a history of melanoma with metastasis to his spine recently found 2 weeks ago on MRI who presents to the ER today for 4 falls last night after his right leg "gave out on me." Patient is due to start chemotherapy tomorrow. He states he called the oncologist office after multiple falls and the nurse there told him to come to the ER to be evaluated. Patient denies any numbness or tingling, loss of bladder or bowel function. He denies hitting his head during the falls or loss of consciousness. Patient states that he has a walker he is supposed to be using but was not using them during these falls. He denies lightheadedness or dizziness during the falls. TRAVEL OUTSIDE OF THE [place] IN LAST 30 DAYS: No - Related data Allergies/Adverse Reactions: No Known Allergies Allergy (Verified 03/27/18 11:36) Past Medical History - General Information source: Patient - Social History Smoking Status: Former Smoker Chew tobacco use (# tins/day): No Frequency of alcohol use: None Drug Abuse: None Family History: Reviewed & Not Pertinent Patient has suicidal ideation: No Patient has homicidal ideation: No - Past Medical History Cardiac Medical History: Reports: Hx Hypertension Denies: Hx Coronary Artery Disease, Hx Heart Attack Pulmonary Medical History: Denies: Hx Asthma, Hx Bronchitis, Hx COPD, Hx Pneumonia Neurological Medical History: Reports: 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 Denies: Hx Cerebrovascular Accident Renal/ Medical History: Denies: Hx Peritoneal Dialysis Malignancy Medical History: Reports Hx Skin Cancer - MELANOMA, METASTATIC, SUCCESSFULLY TREATED GI Medical History: Reports: Hx Gastroesophageal Reflux Disease Musculoskeltal Medical History: Reports Hx Arthritis - GENERALIZED Psychiatric Medical History: Reports: Hx Depression Past Surgical History: Reports: Hx Orthopedic Surgery - Left first toe amputation. Rotator cuff surgery.. Denies: Hx Pacemaker - Immunizations Hx Diphtheria, Pertussis, Tetanus Vaccination: Yes - UNSURE Review of Systems - Review of Systems Constitutional: No symptoms reported EENT: No symptoms reported Cardiovascular: No symptoms reported Respiratory: No symptoms reported Gastrointestinal: No symptoms reported Genitourinary: No symptoms reported Male Genitourinary: No symptoms reported Musculoskeletal: See HPI Skin: No symptoms reported Hematologic/Lymphatic: No symptoms reported Neurological/Psychological: No symptoms reported Physical Exam - Vital signs Vitals: Temp Pulse Resp BP Pulse Ox 97.9 F 83 22 H 128/82 H 93 03/27/18 11:12 03/27/18 11:12 03/27/18 11:12 03/27/18 11:12 03/27/18 11:12 - Notes Notes: PHYSICAL EXAMINATION: GENERAL: Well-appearing and in no acute distress. HEAD: Atraumatic, normocephalic. EYES: Pupils equal round and reactive to light, extraocular movements intact, sclera anicteric, conjunctiva are normal. ENT: ear canals without erythema or foreign body, TMs pearly randall with good bony landmarks, nares patent, oropharynx clear without exudates. Moist mucous membranes. NECK: Normal range of motion, supple without lymphadenopathy LUNGS: CTAB and equal. No wheezes rales or rhonchi. HEART: Regular rate and rhythm without murmurs ABDOMEN: Soft, no tenderness. No guarding, no rebound BACK: no vertebral tenderness, normal ROM GI/: no CVA tenderness EXTREMITIES: Normal range of motion, no pitting edema. No cyanosis. NEUROLOGICAL: Cranial nerves grossly intact. Normal sensory/motor exams. Good and equal strength bilaterally, Kernig and Brudzinski's signs negative, Romberg' s test normal, normal heel to mitchell testing PSYCH: Normal mood, normal affect. SKIN: Warm, Dry, normal turgor, small abrasion to the anterior right knee Course - Re-evaluation Re-evalutation: 03/27/18 19:01 Patient is a leukocytosis of 19,000, however he is on Decadron and this is actually down from the last time he was here in x-rays of the thoracic and lumbar spine consistent with MRI results from 2 weeks ago. I did discuss this case with Dr. Reddy, oncologist on-call for Dr. Ayala, patient's oncologist who looked up his records and states that it does not appear as though there is a reason to repeat MRI in just 2 weeks. Patient to use walker. Patient with normal vitals and in no distress, other lab work unremarkable today. - Vital Signs Vital signs: Temp Pulse Resp BP Pulse Ox 97.9 F 66 18 153/78 H 97 03/27/18 15:09 03/27/18 15:09 03/27/18 15:09 03/27/18 15:09 03/27/18 15:09 - Laboratory Result Diagrams: 03/27/18 11:44 03/27/18 11:44 Laboratory results interpreted by me: 03/27/18 03/27/18 11:44 11:44 WBC 19.0 H RDW 14.2 H Plt Count 67 L Band Neutrophils % 6 H Lymphocytes % (Manual) 8 L Metamyelocytes % 2 H Myelocytes % 1 H Abs Neuts (Manual) 16.3 H Sodium 134.5 L BUN 24 H Glucose 138 H AST 85 H ALT 100 H Alkaline Phosphatase 147 H Total Protein 5.7 L Albumin 3.2 L Discharge - Discharge Clinical Impression: Metastatic cancer Falls Qualifiers: Encounter type: initial encounter Qualified Code(s): W19.XXXA - Unspecified fall, initial encounter Condition: Stable Disposition: HOME, SELF-CARE Additional Instructions: Return immediately for any new or worsening symptoms. Follow up with oncologist, go tomorrow for your chemo appointment. Prescriptions: Walker [Ultra-Light Rollator] 1 each MC DAILY #1 each Referrals: KIRILL TREVINO FNP [Primary Care Provider] - Follow up as needed BENITO AYALA MD [ACTIVE STAFF] - Follow up as needed
[2018-03-27 15:18] VITALS: BP 153/78
[2018-03-29 11:42] LABS: PATH REVIEW PATHOLOGIST REVIEWED
== END 2018-03-27 15:20 | disposition home or self-care (01) ==
LOC: ER 11:06
DX: Z04.3 Encounter for examination and observation following other accident (principal); W19.XXXA Unspecified fall, initial encounter; C79.51 Secondary malignant neoplasm of bone; I10 Essential (primary) hypertension; R29.6 Repeated falls; Z85.820 Personal history of malignant melanoma of skin; Z87.891 Personal history of nicotine dependence
CPT/HCPCS: 36415; 72070; 72110; 80053; 83735; 84100; 85025; 99285

== ENCOUNTER → 2018-04-06 | Outpatient (CLI) | payer MEDICARE, MEDICAID ==
--- NOTE | 2018-04-07 15:15 | RADIOLOGY REPORT (SQ) ---
EXAM DESCRIPTION: MRI HEAD COMBO COMPLETED DATE/TIME: 04/06/2018 8:44 pm REASON FOR STUDY: C43.70 MALIGNANT MELANOMA OF UNSPECIFIED LOWER LIMB, INCLUDING HIP C43.70 MALIGNA NT MELANOMA OF UNSPECIFIED LOWER LIMB, INCLUDI COMPARISON: MRI brain 12/12/2016, 02/03/2014 PET-CT 03/13/2018 TECHNIQUE: Multiplanar imaging includes noncontrasted T1, T2, FLAIR, diffusion with ADC map and post gadolinium contrast T1 sequences. Images stored on PACS. CONTRAST TYPE AND DOSE: 15 mL Prohance. RENAL FUNCTION: GFR > 60. LIMITATIONS: None. FINDINGS: An abnormal soft tissue mass is present along the inner table, right squamous temporal bon e with adjacent dural thickening and abnormal dural enhancement. This measures 3 cm craniocaudad by 3 cm AP x 1.2 cm transverse and is worrisome for a dural melanoma metastatic lesion. No other brain parenchymal or dural base nodules worrisome for metastatic disease. ANATOMY: No developmental anomalies. Normal vascular flow voids. Pituitary fossa normal. CSF SPACES: No hemorrhage. CEREBRUM: Brain parenchyma exhibits normal parenchymal signal. No edema. No primary brain parenchym al masses or enhancement. No altered diffusion worrisome for acute infarct. POSTERIOR FOSSA: No signal alteration. No hemorrhage. No edema, masses, or mass effect. Internal germania tory canals, cerebellopontine angles, mastoids normal. No enhancing lesions. No abnormal enhancement post contrast. DIFFUSION IMAGING: Negative for acute or subacute infarction. ORBITS: No masses. Globes normal. PARANASAL SINUSES: No fluid levels. Mucosa normal. OTHER: No other significant finding. IMPRESSION: Abnormal soft tissue mass along the inner table, right squamous temporal bone measuring 3 x 3 x 1.2 cm in size, worrisome for a dural metastatic lesion given history of melanoma. EVIDENCE OF ACUTE STROKE: NO. TECHNICAL DOCUMENTATION: JOB ID: [id number] [employer]- All Rights Reserved Reading location - IP/workstation name: [email or web address]
== END ==
LOC: RAD 20:09
PROVIDERS: ATTEND Internal Medicine
DX: C43.70 Malignant melanoma of unspecified lower limb, including hip (principal)
CPT/HCPCS: 70553; 82565

== ENCOUNTER 2018-04-09 07:12 | Day surgery (SDC) | payer MEDICARE, MEDICAID ==
[~2018-04-09 07:12] MED LIST: CEFAZOLIN 1 GM/D5W RTU 1 GM/50 ML RTUPB IV PRN; DEXTROSE 5%-1/2 NORMAL SALINE 1,000 ML IV PRN; DIAZEPAM 5 MG TABLET PO PRN; OXYCODONE-ACETAMINOPHEN 5-325 MG TABLET PO PRN
[2018-04-09] MEDS ORDERED: LIDOCAINE 0.5% INJ-PF (5 MG/ML) 50 ML SDV ONE ×2 (09:23→11:22)
[2018-04-09] MEDS ORDERED: BACITRACIN INJ 50,000 UNIT VIAL ONE ×2 (09:24→11:22)
[2018-04-09] MEDS ORDERED: MIDAZOLAM 2 MG/2 ML INJ ONE ×2 (09:24→11:24)
[2018-04-09] MEDS ORDERED: FENTANYL CITRATE INJ/PF 100 MCG/2 ML AMPUL ONE ×2 (09:24→11:23)
--- NOTE | 2018-04-09 09:33 | RADIOLOGY REPORT (SQ) ---
EXAM DESCRIPTION: CHEST SINGLE VIEW COMPLETED DATE/TIME: 04/09/2018 9:22 am REASON FOR STUDY: PREOP COMPARISON: PET-CT 03/13/2018 AP chest 03/11/2018 EXAM PARAMETERS: NUMBER OF VIEWS: One view. TECHNIQUE: Single frontal radiographic view of the chest acquired. RADIATION DOSE: NA LIMITATIONS: None. FINDINGS: LUNGS AND PLEURA: No opacities, masses or pneumothorax. No pleural effusion. MEDIASTINUM AND HILAR STRUCTURES: No masses. Contour normal. HEART AND VASCULAR STRUCTURES: Heart normal in size. Normal vasculature. BONES: No acute findings. HARDWARE: Old surgical tacks left humeral head. OTHER: No other significant finding. IMPRESSION: NO ACUTE RADIOGRAPHIC FINDING IN THE CHEST. TECHNICAL DOCUMENTATION: JOB ID: [id number] [employer]- All Rights Reserved Reading location - IP/workstation name: [email or web address]
[2018-04-09] MEDS ORDERED: BUPIVACAINE HCL 0.25 % INJ/PF (2.5 MG/1 ML) 30 ML VIAL ONE (11:22)
[2018-04-09] MEDS ORDERED: KETAMINE HCL INJ 500 MG/10 ML VIAL ONE (11:23)
[2018-04-09] MEDS ORDERED: LIDOCAINE 2% INJ-PF (20 MG/ML) 10 ML AMPUL ONE (11:23)
[2018-04-09] MEDS ORDERED: PROPOFOL INJ 200 MG/20 ML VIAL IV ONE (11:24)
[2018-04-09] MEDS ORDERED: ONDANSETRON HCL INJ/PF 4 MG/2 ML SDV ONE (11:24)
[2018-04-09] MEDS ORDERED: PROMETHAZINE HCL INJ 25 MG/1 ML VIAL IV PRN (12:16)
[2018-04-09] MEDS ORDERED: DIPHENHYDRAMINE HCL 50 MG/ML VIAL IV PRN (12:16)
[2018-04-09] MEDS ORDERED: FENTANYL CITRATE INJ/PF 100 MCG/2 ML AMPUL IV PRN ×3 (12:16)
--- NOTE | 2018-04-09 12:56 | Discharge Summary ---
Discharge Summary (SDC) - Discharge Final Diagnosis: #1 metastatic melanoma. Date of Surgery: 04/09/18 Discharge Date: 04/09/18 Condition: Poor Treatment or Instructions: Discharge home [after recovery per ASU criteria]. Diet , as tolerated, when fully awake advance as tolerated. Activities within moderation encouraged. Follow up in my office by appointment in about [1 week]. Call for appointment. Leave wounds [covered], [keep clean and dry, until office visit in 1 week]. Hold of on school/work [until evaluation in office]. Meds per med rec. Percocet. May shower [in 48 hrs], [try to keep operated area as dry as possible]. Referrals: IVAN MARTIN I, DO [Primary Care Provider] - Discharge Diet: As Tolerated Respiratory Treatments at Home: Deep Breathing/Coughing Discharge Activity: Activity As Tolerated Report the Following to Your Physician Immediately: Shortness of Breath, Increase in Pain, Unusual Bleeding
--- NOTE | 2018-04-09 14:19 | RADIOLOGY REPORT (SQ) ---
EXAM DESCRIPTION: FLUORO/CV PLACEMENT COMPLETED DATE/TIME: 04/09/2018 1:46 pm REASON FOR STUDY: PORTACATH PLCMT RT SIDE ASST WITH FLUORO IN OR C43.70 MALIGNANT MELANOMA OF UNSPE CIFIED LOWER LIMB, INCLUDI COMPARISON: None. FLUOROSCOPY TIME: 0.5 minutes 13 digital C-arm images saved to PACS. TECHNIQUE: Intra-operative images acquired during surgical procedure to evaluate progress. NUMBER OF IMAGES: 13 digital C-arm images saved to pac's LIMITATIONS: None. FINDINGS: Intra procedural imaging and fluoro during placement of a right-sided central venous perma nent central line with the tip in the superior vena cava by Dr. Covarrubias. Please see the operative r eport for further details IMPRESSION: Intra procedural imaging and fluoro COMMENT: Quality ID 145: Final reports for procedures using fluoroscopy that document radiation exp osure indices, or exposure time and number of fluorographic images (if radiation exposure indices are not available) Please consult full operative report of the attending physician for description of the procedure. TECHNICAL DOCUMENTATION: JOB ID: [id number] [employer]- All Rights Reserved Reading location - IP/workstation name: [facility]
--- NOTE | 2018-04-09 15:07 | Operative Report ---
Operative Report DATE OF SURGERY: 04/09/18 PREOPERATIVE DIAGNOSIS: #1 metastatic melanoma. POSTOPERATIVE DIAGNOSIS: #1 metastatic melanoma. OPERATION: 1. Ultrasound evaluation of the right internal jugular vein. 2. Insertion of Port-A-Cath via real time access in the right internal jugular vein. 3. Angiogram and interpretation. SURGEON: ANIKA KING INCIDENT ANALYST: None. ANESTHESIA: LMAC TISSUE REMOVED OR ALTERED: Not applicable. COMPLICATIONS: None. ESTIMATED BLOOD LOSS: 5 mL. INTRAOPERATIVE FINDINGS: Of a satisfactory right internal jugular vein for access. About 1.5 cm in diameter. It accepted a single-lumen Port-A-Cath without difficulty. The tip of the catheter just down in the right atrium. Easy egress of blood and ingress of heparinized solution. Smooth flow flow of contrast through the right atrium ventricle and pulmonary outflow tract documented. Right apex look normal postprocedure. PROCEDURE: After obtaining informed consent, the patient was taken to the [operating room] and positioned supine. The [right] neck and chest were prepared with chlorhexidine and draped out with sterile linen. After the " universal timeout ", in which it was verified that the patient continued to receive antibiotic, the procedure commenced. A steriley sheathed ultrasound probe was used to evaluate the [right] internal jugular vein. Local anesthesia was infiltrated adjacent to the probe. Access into the [right] internal jugular vein was obtained using a micropuncture needle, followed by micropuncture wire and then a micropuncture catheter. This was followed by introduction of a 0.035 guidewire the tip of which was placed down into the inferior vena cava . The port sites was marked , locally anesthetized and incision made. Dissection now proceeded to the deep subcutaneous subcutaneous tissues so that a pocket for the port was made. Meticulous hemostasis was secured and the catheter was tunneled between the 2 incisions. Proximally, the catheter was now positioned using a peel-away sheath. Distally the catheter was tailored to an appropriate length and then mated to the port using the contained fixating device. The port was now placed in the pocket and the catheter optimally positioned. The port was accessed with a Nicole needle and an angiogram done under digital subtraction. The findings as dictated. With adequate and satisfactory positioning, both lumens of the chamber were irrigated with heparinized solution. The wounds were now closed using interrupted 3-0 PDS to the subcutaneous tissues and a continuous subcuticular suture of 4-0 Monocryl to the skin. These are reinforced with Steri-Strips over benzoin and then dressings applied. Copies of the dictated operative report for Dr. Anika Covarrubias MD.
[2018-04-09 15:16] VITALS: BP 132/87
--- NOTE | 2018-04-09 15:39 | EKG REPORT ---
SEVERITY:- NORMAL ECG - SINUS RHYTHM : Confirmed by: Jonelle Sykes MD 09-Apr-2018 15:37:52
== END 2018-04-09 15:00 | disposition home or self-care (01) ==
LOC: CCL 07:12 → OROUT 15:00
PROVIDERS: ATTEND Surgery
DX: C43.70 Malignant melanoma of unspecified lower limb, including hip (principal); M19.90 Unspecified osteoarthritis, unspecified site; G40.909 Epilepsy, unspecified, not intractable, without status epilepticus; F41.9 Anxiety disorder, unspecified; E78.00 Pure hypercholesterolemia, unspecified; Z87.898 Personal history of other specified conditions
CPT/HCPCS: 36561; 71045; 77001; 93005; 93010; C1752; C1788; Q9967; J2250; J3490 ×3; J0690; A9270 ×2; J3010; J2405; J2704; J1644; J1642; 532

== ENCOUNTER 2018-04-27 13:41 | Inpatient (IN) | payer MEDICARE, MEDICAID ==
[2018-04-27] MEDS ORDERED: DEXAMETHASONE SOD PHOS INJ 10 MG/1 ML VIAL IV ONE (14:44)
--- NOTE | 2018-04-27 14:50 | ER Document Report ---
ED General - General Chief Complaint: General Weakness Stated Complaint: LEG WEAKNESS Time Seen by Provider: 04/27/18 14:33 Mode of Arrival: Ambulatory Information source: Patient Notes: 58-year-old male history of melanoma that initially was in the great toe and has since spread t othe t9 and L1 regions presents with family with concerns of weakness and multiple falls and loss of bowel function. Pt is drowsy per family , had lab work done today and saw Dr montgomery. pancytopenia noted. TRAVEL OUTSIDE OF THE [place] IN LAST 30 DAYS: No - HPI Onset: Other Onset/Duration: Worse Quality of pain: Achy Severity: Severe Pain Level: 1 Associated symptoms: Weakness Exacerbated by: Movement Relieved by: Denies Similar symptoms previously: Yes Recently seen / treated by doctor: Yes - Related Data Allergies/Adverse Reactions: No Known Allergies Allergy (Verified 04/27/18 20:17) Past Medical History - Social History Smoking Status: Unknown if Ever Smoked Cigarette use (# per day): No Chew tobacco use (# tins/day): No Smoking Education Provided: No Family History: Reviewed & Not Pertinent Patient has suicidal ideation: No Patient has homicidal ideation: No - Past Medical History Cardiac Medical History: Reports: Hx Hypertension Denies: Hx Coronary Artery Disease, Hx Heart Attack Pulmonary Medical History: Denies: Hx Asthma, Hx Bronchitis, Hx COPD, Hx Pneumonia Neurological Medical History: Reports: 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 Denies: Hx Cerebrovascular Accident Renal/ Medical History: Denies: Hx Peritoneal Dialysis Malignancy Medical History: Reports Hx Skin Cancer - MELANOMA, METASTATIC, SUCCESSFULLY TREATED GI Medical History: Reports: Hx Gastroesophageal Reflux Disease Musculoskeltal Medical History: Reports Hx Arthritis - GENERALIZED Psychiatric Medical History: Reports: Hx Depression Past Surgical History: Reports: Hx Orthopedic Surgery - Left first toe amputation. Rotator cuff surgery.. Denies: Hx Pacemaker - Immunizations Hx Diphtheria, Pertussis, Tetanus Vaccination: Yes - UNSURE Review of Systems - Review of Systems Notes: REVIEW OF SYSTEMS: CONSTITUTIONAL : Denies fever, chills, or sweats. Denies recent illness. EENT: Denies eye, ear, throat, or mouth pain or symptoms. Denies nasal or sinus congestion or discharge. Denies throat, tongue, or mouth swelling or difficulty swallowing. CARDIOVASCULAR: Denies chest pain. Denies palpitations or racing or irregular heart beat. Denies ankle edema. RESPIRATORY: Denies cough, cold, or chest congestion. Denies shortness of breath, difficulty breathing, or wheezing. GASTROINTESTINAL: difficulty with bowel movements GENITOURINARY: Denies difficulty urinating, painful urination, burning, frequency, blood in urine, or discharge. MUSCULOSKELETAL: back pain, leg weakness SKIN: Denies rash, lesions or sores. HEMATOLOGIC : Denies easy bruising or bleeding. LYMPHATIC: Denies swollen, enlarged glands. NEUROLOGICAL: admit ot weakness drowsiness PSYCHIATRIC: Denies anxiety or stress. Denies depression, suicidal ideation, or homicidal ideation. ALL OTHER SYSTEMS REVIEWED AND NEGATIVE. Dictation was performed using [employer] voice recognition software PHYSICAL EXAMINATION: GENERAL: chronically ill appearing male. HEAD: Atraumatic, normocephalic. EYES: Pupils equal round and reactive to light, extraocular movements intact, sclera anicteric, conjunctiva are normal. ENT: Nares patent, oropharynx clear without exudates. Moist mucous membranes. NECK: Normal range of motion, supple without lymphadenopathy LUNGS: Breath sounds clear to auscultation bilaterally and equal. No wheezes rales or rhonchi. HEART: Regular rate and rhythm without murmurs ABDOMEN: Soft, nontender, nondistended abdomen. No guarding, no rebound. No masses appreciated. Musculoskeletal: weakness. NEUROLOGICAL: weakness of both lower extremites unable to raise more than a few inches off the bed PSYCH: Normal mood, normal affect. SKIN: Warm, Dry, normal turgor, no rashes or lesions noted. Physical Exam - Vital signs Vitals: Pulse Pulse Ox 87 95 04/27/18 17:05 04/27/18 17:05 Course - Re-evaluation Re-evalutation: 04/27/18 14:49 Patient has probable enlarged mass I will order an MRI patient's pancytopenic he will be placed on restrictions 04/27/18 16:26 Patient noted to be having a questionable pneumonia white count is low, patient also noted ot have hgb of 7.5 04/27/18 18:[address] fischer who requests patient be admitted to nighttime physician 04/27/18 19:[address] Toledo he requests cardiac workup - Vital Signs Vital signs: Temp Pulse Resp BP Pulse Ox 98.2 F 88 15 132/88 H 96 04/27/18 20:20 04/27/18 20:35 04/27/18 20:35 04/27/18 20:35 04/27/18 20:35 - Laboratory Result Diagrams: 04/27/18 15:26 04/27/18 15:26 Laboratory results interpreted by me: 04/27/18 04/27/18 04/27/18 15:26 15:26 17:08 WBC 2.1 L RBC 2.64 L Hgb 7.4 L Hct 21.5 L RDW 15.5 H Plt Count 36 L Metamyelocytes % 2 H Abs Neuts (Manual) 1.6 L Abs Lymphs (Manual) 0.3 L Sodium 145.8 H Chloride 108 H BUN 36 H Direct Bilirubin 0.7 H Alkaline Phosphatase 166 H Total Protein 5.6 L Albumin 2.7 L Crossmatch See Detail Discharge - Discharge Clinical Impression: Pancytopenia Melanoma Qualifiers: Melanoma location: unspecified site Qualified Code(s): C43.9 - Malignant melanoma of skin, unspecified Pneumonia Qualifiers: Pneumonia type: due to unspecified organism Laterality: right Lung location: lower lobe of lung Qualified Code(s): J18.1 - Lobar pneumonia, unspecified organism Condition: Fair Disposition: ADMITTED INPATIENT Admitting Provider: Hospitalist Unit Admitted: IMCU Referrals: IVAN MARTIN DO [Primary Care Provider] - Follow up as needed
[2018-04-27] MEDS ORDERED: HYDROMORPHONE HCL INJ/PF 2 MG/ML AMPULE IV ONE (15:11)
--- NOTE | 2018-04-27 15:31 | RADIOLOGY REPORT (SQ) ---
EXAM DESCRIPTION: CHEST SINGLE VIEW COMPLETED DATE/TIME: 04/27/2018 3:03 pm REASON FOR STUDY: weakness COMPARISON: None. EXAM PARAMETERS: NUMBER OF VIEWS: One view. TECHNIQUE: Single frontal radiographic view of the chest acquired. RADIATION DOSE: NA LIMITATIONS: None. FINDINGS: LUNGS AND PLEURA: Questionable opacification the retrocardiac area on the left. The left hemidiaphragm is indistinct. MEDIASTINUM AND HILAR STRUCTURES: No masses. Contour normal. HEART AND VASCULAR STRUCTURES: Heart normal in size. Normal vasculature. BONES: No acute findings. HARDWARE: Injection port on the right. OTHER: No other significant finding. IMPRESSION: Cannot exclude left lower lobe pneumonia. TECHNICAL DOCUMENTATION: JOB ID: [id number] [employer]- All Rights Reserved Reading location - IP/workstation name: [email or web address]
[2018-04-27 15:45] LABS: HEMATOCRIT 21.5 % (37.9-51.0); MEAN CORPUSCULAR HGB CONC 34.5 g/dL (32.0-36.0); MEAN CORPUSCULAR VOLUME 81 fl (80-97); RED BLOOD COUNT 2.64 10^6/uL (4.35-5.55); RED CELL DISTRIBUTION WIDTH 15.5 % (11.5-14.0); WHITE BLOOD COUNT 2.1 10^3/uL (4.0-10.5)
[2018-04-27 15:55] LABS: ALANINE AMINOTRANSFERASE 44 U/L (21-72); ALBUMIN 2.7 g/dL (3.5-5.0); ALKALINE PHOSPHATASE 166 U/L (38-126); ANION GAP 9 (5-19); ASPARTATE AMINO TRANSFERASE 40 U/L (17-59); BILIRUBIN,DIRECT 0.7 mg/dL (0.0-0.4); BILIRUBIN,TOTAL 1.3 mg/dL (0.2-1.3); BLOOD UREA NITROGEN 36 mg/dL (7-20); CALCIUM 10.1 mg/dL (8.4-10.2); CARBON DIOXIDE 29 mmol/L (22-30); CHLORIDE 108 mmol/L (98-107); GLUCOSE 107 mg/dL (75-110); POTASSIUM 3.7 mmol/L (3.6-5.0); SODIUM 145.8 mmol/L (137-145); TOTAL PROTEIN 5.6 g/dL (6.3-8.2)
[2018-04-27] MEDS ORDERED: CEFTRIAXONE 1 GM/D5W RTU 1 GM/50 ML RTUPB IV ONE (16:08)
[2018-04-27 16:13] LABS: PLATELET COUNT 36 10^3/uL (150-450)
[2018-04-27 16:19] LABS: ABSOLUTE LYMPHOCYTES# (MANUAL) 0.3 10^3/uL (0.5-4.7); ABSOLUTE MONOCYTES # (MANUAL) 0.1 10^3/uL (0.1-1.4); ABSOLUTE NEUTROPHILS# (MANUAL) 1.6 10^3/uL (1.7-8.2); ANISOCYTOSIS SLIGHT; BAND NEUTROPHILS % (MANUAL) 5 % (3-5); BASOPHILS % (MANUAL) 0 % (0-2); EOSINOPHILS % (MANUAL) 1 % (0-6); LYMPHOCYTES % (MANUAL) 16 % (13-45); METAMYELOCYTES % (MANUAL) 2 % (0); MONOCYTES % (MANUAL) 5 % (3-13); OVALOCYTES SLIGHT; PLATELET COMMENT DECREASED; POIKILOCYTOSIS SLIGHT; SEGMENTED NEUTROPHILS % (MAN) 71 % (42-78); TOTAL CELLS COUNTED 100
[2018-04-27 16:23] LABS: HEMOGLOBIN 7.4 g/dL (13.5-17.0)
[2018-04-27] MEDS ORDERED: NORMAL SALINE 250 ML IV PRN ×2 (16:24)
[2018-04-27] MEDS ORDERED: CEFEPIME 1 GM/D5W RTU 1 GM/50 ML RTUPB IV ONE (16:40)
--- NOTE | 2018-04-27 18:06 | RADIOLOGY REPORT (SQ) ---
EXAM DESCRIPTION: MRI LUMBAR SPINE COMBO COMPLETED DATE/TIME: 04/27/2018 5:30 pm REASON FOR STUDY: T9 L1 melanoma , loss of bowel function COMPARISON: None. TECHNIQUE: Sagittal and Axial imaging includes T1, T1 post gadolinium, T2, STIR and gradient echo se quences. Coronal T2/HASTE imaging. CONTRAST TYPE AND DOSE: 15 mL Prohance. RENAL FUNCTION: GFR > 60. LIMITATIONS: None. FINDINGS: There is an expansile lesion in the right L3 pedicle and lateral mass with 6 mm of tumor e ncroachment on the right lateral aspect of the spinal canal. There is also an expansile lesion in th e posterior T9 vertebral body with encroachment on the anterior thecal sac and moderate central steno sis. No severe stenosis or her compression. No focal spinal cord signal abnormality or enhancement. Vertebral bodies are otherwise preserved height. Marrow signal is diffusely heterogeneous with sca ttered irregular enhancement consistent with diffuse metastatic disease. OTHER: Numerous lesions are present throughout the liver. IMPRESSION: There is an expansile lesion in the right L3 pedicle and lateral mass with 6 mm of tumor encroachment on the right lateral aspect of the spinal canal. There is also an expansile lesion in t he posterior T9 vertebral body with encroachment on the anterior thecal sac and moderate central sten osis. No severe stenosis or her compression. No focal spinal cord signal abnormality or enhancement. Vertebral bodies are otherwise preserved height. Marrow signal is diffusely heterogeneous with scat tered irregular enhancement consistent with diffuse metastatic disease. Numerous lesions are present throughout the liver. TECHNICAL DOCUMENTATION: JOB ID: [id number] 2010 [id number]- All Rights Reserved Reading location - IP/workstation name: [email or web address]
[2018-04-27] MEDS ORDERED: VANCOMYCIN HCL INJ 1000 MG VIAL IV ONE (18:16)
[2018-04-27 20:31] LABS: CREATINE KINASE MB 1.29 ng/mL (<4.55); TROPONIN I 0.016 ng/mL
[2018-04-27 21:08] LABS: VENOUS BLOOD HCO3 26.6 mmol/L (20-32); VENOUS BLOOD PH 7.38 (7.30-7.42)
[2018-04-27] MEDS ORDERED: MAG HYDROX/AL HYDROX/SIMETH SUSP 30 ML UDCUP PO PRN (21:27)
[2018-04-27] MEDS ORDERED: ACETAMINOPHEN 650 MG SUPP.RECT PR PRN (21:27)
[2018-04-27] MEDS ORDERED: IPRATROPIUM/ALBUTEROL 0.5-2.5 MG/3 ML AMPUL NEB PRN (21:27)
[2018-04-27] MEDS ORDERED: VANCOMYCIN HCL 0 MG in DEXTROSE 5%-WATER 250 ML IV NR (21:30)
[2018-04-27] MEDS ORDERED: POTASSI CL 20 MEQ/1/2NS 1L 20 MEQ/1,000 ML RTUINJ IV ONE (21:34)
[2018-04-27 21:54] LABS: PHOSPHORUS 5.2 mg/dL (2.5-4.5)
[2018-04-27] MEDS ORDERED: (PENDING PHARMACY ID) (Sennosides [Senna Laxative] 8.6 MG) PO SCH (22:00)
[2018-04-27 22:06] LABS: APPEARANCE,URINE CLEAR; BILIRUBIN,URINE NEGATIVE (NEGATIVE); COLOR,URINE AMBER; GLUCOSE, URINE NEGATIVE (NEGATIVE); KETONES,URINE NEGATIVE (NEGATIVE); LEUKOCYTE ESTERASE,URINE NEGATIVE (NEGATIVE); NITRITE,URINE NEGATIVE (NEGATIVE); PROTEIN,URINE NEGATIVE (NEGATIVE); URINE SPECIFIC GRAVITY 1.026
[2018-04-27] MEDS: OXYCODONE HCL SR 10 MG TABLET PO SCH (22:29)
[2018-04-27] MEDS: HEPARIN SOD (PORCINE) 5,000 UNIT/ML 1 ML SYRINGE SUBCUT SCH (22:29)
[2018-04-27] MEDS: CLONAZEPAM 1 MG TABLET PO SCH (22:30)
[2018-04-27] MEDS: SENNOSIDES/DOCUSATE 8.6-50 MG 1 EACH TABLET PO SCH (22:30)
[2018-04-28] MEDS: IPRATROPIUM/ALBUTEROL 0.5-2.5 MG/3 ML AMPUL NEB SCH ×3 (00:20→15:35)
[2018-04-28] MEDS: HEPARIN SOD (PORCINE) 5,000 UNIT/ML 1 ML SYRINGE SUBCUT SCH ×3 (04:56→22:19)
[2018-04-28 05:39] LABS: HEMATOCRIT 24.2 % (37.9-51.0); HEMOGLOBIN 8.7 g/dL (13.5-17.0); MEAN CORPUSCULAR HEMOGLOBIN 29.5 pg (27.0-33.4); MEAN CORPUSCULAR VOLUME 82 fl (80-97); RED BLOOD COUNT 2.96 10^6/uL (4.35-5.55); RED CELL DISTRIBUTION WIDTH 14.7 % (11.5-14.0); WHITE BLOOD COUNT 2.4 10^3/uL (4.0-10.5)
[2018-04-28 05:52] LABS: ALANINE AMINOTRANSFERASE 33 U/L (21-72); ALBUMIN 2.4 g/dL (3.5-5.0); ALKALINE PHOSPHATASE 136 U/L (38-126); ANION GAP 9 (5-19); ASPARTATE AMINO TRANSFERASE 30 U/L (17-59); BILIRUBIN,DIRECT 0.7 mg/dL (0.0-0.4); BILIRUBIN,TOTAL 1.5 mg/dL (0.2-1.3); BLOOD UREA NITROGEN 31 mg/dL (7-20); CALCIUM 9.3 mg/dL (8.4-10.2); CARBON DIOXIDE 26 mmol/L (22-30); CHLORIDE 109 mmol/L (98-107); GLUCOSE 132 mg/dL (75-110); SODIUM 143.6 mmol/L (137-145)
--- NOTE | 2018-04-28 06:50 | PDOC H&P ---
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 Patient presents with confusion and falls, patient is unable to provide history however is at bedside stating recently started on increased dose of long-acting opiate. Patient has no focal complaints he responds to questions with grunting although in no acute distress. Patient's is also concerned for underlying undiagnosed dementia. In the emergency room he is found to be mildly hypotensive with pancytopenia. Chest x-ray is unremarkable, urinalysis is pending. He is ordered packed red blood cells, empiric antibiotics and referred to the hospitalist for admission. Past Medical History Cardiac Medical History: Reports: Hypertension Denies: Coronary Artery Disease, Myocardial Infarction Pulmonary Medical History: Denies: Asthma, Bronchitis, Chronic Obstructive Pulmonary Disease (COPD), Pneumonia Neurological Medical History: Reports: Seizures - GRAND MAL - LAST ONE 2014 Malignancy Medical History: Reports: Other - Recurrent malignant melanoma with metastases GI Medical History: Reports: Gastroesophageal Reflux Disease Musculoskeltal Medical History: Reports: Arthritis - GENERALIZED Psychiatric Medical History: Reports: Depression Hematology: Denies: Anemia Past Surgical History Past Surgical History: Reports: Orthopedic Surgery - Left first toe amputation. Rotator cuff surgery. Denies: Pacemaker Social History Information Source: Relative, [facility] Records Lives with: Family Smoking Status: Former Smoker Frequency of Alcohol Use: None Hx Recreational Drug Use: No Drugs: None Hx Prescription Drug Abuse: No - Advance Directive Resuscitation Status: Full Code Family History Family History: Other - Dementia in mother Parental Family History Reviewed: Yes - Dementia Children Family History Reviewed: Yes Sibling(s) Family History Reviewed.: Yes Medication/Allergy Home Medications: Albuterol Sulfate [Proair HFA] 1 puff IH Q4HP PRN 04/27/18 Atorvastatin Calcium [Lipitor 20 mg Tablet] 20 mg PO QPM 04/27/18 Clonazepam [Klonopin 1 mg Tablet] 3 mg PO QHS 04/27/18 Dexamethasone [Decadron 4 mg Tablet] 4 mg PO BID 04/27/18 Fluticasone Propionate [Flonase Nasal Rush 50 Mcg/Rush 16 gm] 1 spray NASL DAILYP PRN 04/27/18 Lamotrigine [Lamictal] 200 mg PO QAM 04/27/18 Lamotrigine [Lamictal] 300 mg PO QPM 04/27/18 Oxycodone Myristate [Xtampza ER] 27 mg PO Q12 04/27/18 Ranitidine HCl [Zantac 150 mg Tablet] 150 mg PO BID 04/27/18 Sennosides [Senna Laxative] 8.6 mg PO Q12 04/27/18 Allergies/Adverse Reactions: No Known Allergies Allergy (Verified 04/27/18 20:17) Review of Systems ROS unobtainable: Due to mental status Physical Exam Vital Signs: Temp Pulse Resp BP Pulse Ox 97.5 F 69 18 98/58 L 93 04/28/18 02:12 04/28/18 02:12 04/28/18 02:12 04/28/18 02:12 04/28/18 02:12 Intake & Output 04/26/18 04/27/18 04/28/18 11:59 11:59 11:59 Intake Total 700 Output Total 0 Balance 700 Weight 75.2 kg General appearance: PRESENT: no acute distress, cooperative, thin. ABSENT: morbidly obese, severe distress Head exam: PRESENT: atraumatic, normocephalic Eye exam: PRESENT: conjunctiva pink, EOMI, PERRLA. ABSENT: scleral icterus Ear exam: PRESENT: normal external ear exam Mouth exam: PRESENT: dry mucosa, tongue midline Neck exam: ABSENT: carotid bruit, JVD, lymphadenopathy, thyromegaly Respiratory exam: PRESENT: clear to auscultation lc. ABSENT: rales, rhonchi, wheezes Cardiovascular exam: PRESENT: RRR. ABSENT: diastolic murmur, rubs, systolic murmur Pulses: PRESENT: normal dorsalis pedis pul Vascular exam: PRESENT: normal capillary refill GI/Abdominal exam: PRESENT: normal bowel sounds, soft. ABSENT: distended, guarding, mass, organolmegaly, rebound, tenderness Rectal exam: PRESENT: deferred Extremities exam: PRESENT: full ROM. ABSENT: calf tenderness, clubbing, pedal edema Neurological exam: PRESENT: alert, altered, awake, oriented to person, CN II- XII grossly intact. ABSENT: oriented to place, oriented to time, oriented to situation, motor sensory deficit Psychiatric exam: PRESENT: flat affect Skin exam: PRESENT: dry, intact, warm. ABSENT: cyanosis, rash Results Laboratory Results: 04/28/18 04:33 04/27/18 04/28/18 21:41 04:33 Sodium 143.6 Potassium 4.0 Chloride 109 H Carbon Dioxide 26 Anion Gap 9 BUN 31 H Creatinine 0.80 Est GFR ( Amer) > 60 Est GFR (Non-Af Amer) > 60 Glucose 132 H Calcium 9.3 Total Bilirubin 1.5 H AST 30 ALT 33 Alkaline Phosphatase 136 H Total Protein 5.0 L Albumin 2.4 L Urine Color JESSICA Urine Appearance CLEAR Urine pH 5.0 Ur Specific [place] 1.026 Urine Protein NEGATIVE Urine Glucose (UA) NEGATIVE Urine Ketones NEGATIVE Urine Blood NEGATIVE Urine Nitrite NEGATIVE Ur Leukocyte Esterase NEGATIVE Urine WBC (Auto) 1 Impressions: Lumbar Spine MRI 04/27/18 14:44 IMPRESSION: There is an expansile lesion in the right L3 pedicle and lateral mass with 6 mm of tumor encroachment on the right lateral aspect of the spinal canal. There is also an expansile lesion in the posterior T9 vertebral body with encroachment on the anterior thecal sac and moderate central stenosis. No severe stenosis or her compression. No focal spinal cord signal abnormality or enhancement. Vertebral bodies are otherwise preserved height. Marrow signal is diffusely heterogeneous with scattered irregular enhancement consistent with diffuse metastatic disease. Numerous lesions are present throughout the liver. Chest X-Ray 04/27/18 14:47 IMPRESSION: Cannot exclude left lower lobe pneumonia. Assessment & Plan - Diagnosis (1) Melanoma Qualifiers: Melanoma location: unspecified site Qualified Code(s): C43.9 - Malignant melanoma of skin, unspecified Is this a current diagnosis for this admission?: Yes Plan: Oncology consult (2) Pancytopenia Is this a current diagnosis for this admission?: Yes Plan: Without neutropenia, packed red blood cells ordered no active bleeding, follow- up CBC (3) Chronic pain Is this a current diagnosis for this admission?: Yes Plan: Recent increased dose of long-acting opiate 27 mg every 12 hours. Will hold and replacement for Oxycontin SR 20 every 12. Hold for excessive sedation (4) Encephalopathy Is this a current diagnosis for this admission?: Yes Plan: Acute illness versus toxic versus dementia, supportive care - Time Time Spent: 50 to 70 Minutes - Inpatient Certification Medical Necessity: Need Close Monitoring Due to Risk of Patient Decompensation
[2018-04-28 07:18] LABS: PLATELET COUNT 35 10^3/uL (150-450)
[2018-04-28] MEDS: VANCOMYCIN HCL 1,000 MG in DEXTROSE 5%-WATER 250 ML IV SCH ×2 (07:18→17:35)
[2018-04-28 07:24] LABS: ABSOLUTE LYMPHOCYTES# (MANUAL) 0.4 10^3/uL (0.5-4.7); ABSOLUTE MONOCYTES # (MANUAL) 0.2 10^3/uL (0.1-1.4); ABSOLUTE NEUTROPHILS# (MANUAL) 1.9 10^3/uL (1.7-8.2); BAND NEUTROPHILS % (MANUAL) 9 % (3-5); BASOPHILS % (MANUAL) 0 % (0-2); EOSINOPHILS % (MANUAL) 0 % (0-6); LYMPHOCYTES % (MANUAL) 12 % (13-45); MONOCYTES % (MANUAL) 7 % (3-13); MYELOCYTES % (MANUAL) 2 % (0); SEGMENTED NEUTROPHILS % (MAN) 67 % (42-78); TOTAL CELLS COUNTED 100
[2018-04-28 07:26] LABS: HYPOCHROMASIA 1+; OVALOCYTES SLIGHT; PLATELET COMMENT DECREASED
[2018-04-28] MEDS ORDERED: CEFEPIME 1 GM/D5W RTU 1 GM/50 ML RTUPB IV ONE (07:45)
[2018-04-28] MEDS: CEFEPIME 1 GM/D5W RTU 1 GM/50 ML RTUPB IV SCH ×2 (08:25→17:35)
[2018-04-28] MEDS: LAMOTRIGINE 100 MG TABLET PO SCH ×2 (08:29→17:37)
[2018-04-28] MEDS: OXYCODONE HCL SR 10 MG TABLET PO SCH ×2 (09:34→22:19)
[2018-04-28] MEDS: SENNOSIDES/DOCUSATE 8.6-50 MG 1 EACH TABLET PO SCH ×2 (09:34→22:18)
[2018-04-28] MEDS ORDERED: FLUTICASONE NASAL SPRAY 50 MCG/SPRY 120 SPRAY/16 GM NASL PRN (13:54)
--- NOTE | 2018-04-28 14:25 | PDOC PROGRESS REPORT ---
Subjective Progress Note for:: 04/28/18 Subjective:: Admitted with altered mental status, weakness Reason For Visit: MULTIPLE MYELOMA, UTI, ENCEPHALOPATHY, WEAKNESS Physical Exam Vital Signs: Temp Pulse Resp BP Pulse Ox 98.3 F 81 18 95/62 L 91 L 04/28/18 11:32 04/28/18 11:32 04/28/18 11:32 04/28/18 11:32 04/28/18 11:32 Intake & Output 04/27/18 04/28/18 04/29/18 06:59 06:59 06:59 Intake Total 950 Output Total 0 Balance 950 Weight 75.2 kg General appearance: PRESENT: no acute distress, well-developed Head exam: PRESENT: atraumatic, normocephalic Eye exam: PRESENT: conjunctiva pink, EOMI, PERRLA. ABSENT: scleral icterus Ear exam: PRESENT: normal external ear exam Mouth exam: PRESENT: moist, tongue midline Neck exam: PRESENT: lymphadenopathy. ABSENT: carotid bruit, JVD, thyromegaly Respiratory exam: PRESENT: clear to auscultation lc. ABSENT: rales, rhonchi, wheezes Cardiovascular exam: PRESENT: RRR. ABSENT: diastolic murmur, rubs, systolic murmur GI/Abdominal exam: PRESENT: normal bowel sounds, soft. ABSENT: distended, guarding, mass, organolmegaly, rebound, tenderness Rectal exam: PRESENT: deferred Extremities exam: PRESENT: full ROM. ABSENT: calf tenderness, clubbing, pedal edema Neurological exam: PRESENT: alert, awake, oriented to place, other - weakness lower extremities. ABSENT: motor sensory deficit Psychiatric exam: PRESENT: appropriate affect, normal mood. ABSENT: homicidal ideation, suicidal ideation Skin exam: PRESENT: dry, intact, warm. ABSENT: cyanosis, rash Results Laboratory Results: 04/28/18 04:33 04/28/18 04:33 04/27/18 04/28/18 04/28/18 21:41 04:33 04:33 WBC 2.4 L RBC 2.96 L Hgb 8.7 L Hct 24.2 L MCV 82 MCH 29.5 MCHC 36.0 RDW 14.7 H Plt Count 35 L Seg Neutrophils % Not Reportable Lymphocytes % Not Reportable Monocytes % Not Reportable Eosinophils % Not Reportable Basophils % Not Reportable Absolute Neutrophils Not Reportable Absolute Lymphocytes Not Reportable Absolute Monocytes Not Reportable Absolute Eosinophils Not Reportable Absolute Basophils Not Reportable Sodium 143.6 Potassium 4.0 Chloride 109 H Carbon Dioxide 26 Anion Gap 9 BUN 31 H Creatinine 0.80 Est GFR ( Amer) > 60 Est GFR (Non-Af Amer) > 60 Glucose 132 H Calcium 9.3 Total Bilirubin 1.5 H AST 30 ALT 33 Alkaline Phosphatase 136 H Total Protein 5.0 L Albumin 2.4 L Urine Color JESSICA Urine Appearance CLEAR Urine pH 5.0 Ur Specific [place] 1.026 Urine Protein NEGATIVE Urine Glucose (UA) NEGATIVE Urine Ketones NEGATIVE Urine Blood NEGATIVE Urine Nitrite NEGATIVE Ur Leukocyte Esterase NEGATIVE Urine WBC (Auto) 1 Impressions: Lumbar Spine MRI 04/27/18 14:44 IMPRESSION: There is an expansile lesion in the right L3 pedicle and lateral mass with 6 mm of tumor encroachment on the right lateral aspect of the spinal canal. There is also an expansile lesion in the posterior T9 vertebral body with encroachment on the anterior thecal sac and moderate central stenosis. No severe stenosis or her compression. No focal spinal cord signal abnormality or enhancement. Vertebral bodies are otherwise preserved height. Marrow signal is diffusely heterogeneous with scattered irregular enhancement consistent with diffuse metastatic disease. Numerous lesions are present throughout the liver. Chest X-Ray 04/27/18 14:47 IMPRESSION: Cannot exclude left lower lobe pneumonia. Assessment & Plan - Diagnosis (1) Anemia Qualifiers: Anemia type: unspecified type Qualified Code(s): D64.9 - Anemia, unspecified Is this a current diagnosis for this admission?: Yes Plan: Patient was transfused 2 units of packed red blood cells and his hemoglobin is up to 8.7 (2) Encephalopathy Is this a current diagnosis for this admission?: Yes Plan: Likely from his underlying acute on chronic disease (3) Melanoma Qualifiers: Melanoma location: unspecified site Qualified Code(s): C43.9 - Malignant melanoma of skin, unspecified Is this a current diagnosis for this admission?: Yes Plan: Consult with Dr. Savage has been requested. I did discuss with him and suggest starting patient on dexamethasone 4 mg every 6 hours. (4) Pneumonia Qualifiers: Pneumonia type: due to unspecified organism Laterality: right Lung location: lower lobe of lung Qualified Code(s): J18.1 - Lobar pneumonia, unspecified organism Is this a current diagnosis for this admission?: Yes Plan: Patient is on empiric antibiotics to cover possible pneumonia (5) Pancytopenia Is this a current diagnosis for this admission?: Yes Plan: His platelet count is 35,000. It is possible that patient has bone marrow infiltration secondary to his metastatic melanoma. - Time Time Spent with patient: 15-24 minutes Medications reviewed and adjusted accordingly: Yes Anticipated discharge: Home Within: within 72 hours
--- NOTE | 2018-04-28 14:26 | PDOC CONSULTATION ---
Consultation Consult Date: 04/28/18 Attending physician:: KINDRA HUYNH Consult reason:: Melanoma, weakness, sepsis, pancytopenia History of Present Illness Admission Date/PCP: 04/27/18 21:12 Austyn HOBBS Patient complains of: Confusion, weakness, sepsis, melanoma History of Present Illness: CECILLE GAGNON is a 58 year old male with known history of stage IV melanoma. He has had this diagnosis now for 3-1/2 years, originally was diagnosed about 4 years ago with a left toe melanoma, with inguinal metastasis, consistent with stage III melanoma. He was placed on clinical trial with interferon, unfortunately after completion of trial within about 3-4 months he had progression of disease, thereafter he was treated first with BRAF inhibitor, then with immunotherapy with Yervoy, thereafter he had an excellent response with stabilization of disease. He actually had biopsy of lymph nodes done several times over the last 3 years which indicated only granulomas, consistent with treatment effect. Unfortunately about 6-8 weeks ago he presented to the ED with severe mid and low back pain. He was found to have an expansile lesion in both T9 and L3, we started him on steroids at that time, started pain medication, did a biopsy of the lumbar lesion which indicated melanoma. Initiated radiation therapy which completed on 04/09/2018 to both the thoracic and lumbar area. He was actually doing well thereafter, we just saw him about 6 days ago, and were set to restart immunotherapy with both.YERVOY/OPDIVO. Unfortunately, yesterday presented to our office completely wheelchair-bound, confused, actually fell on her office, ultimately because of his confusion, hypotension, tachycardia we called EMS. And he was transported to [facility] ED. Here he had CBC drawn which showed pancytopenia, he had some elevation of bilirubin, chest x-ray indicated what appeared to be a lung opacity consistent with pneumonia, and he was felt to be septic. He was started on broad-spectrum antibiotics. He was given 1 unit of packed red blood cells because his hemoglobin was in the 7 range. He had lumbar spine MRI which showed the thoracic and lumbar lesion that we knew about but no distinct evidence of cord compression. Of note, about 5 days ago we discontinued his oral steroid after taper. And he did worsen in terms of his lower extremity weakness thereafter. 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 Rotator cuff surgery. Denies: Pacemaker Social History Information Source: Patient, Relative, DrShaan Rosas, [facility] Records Lives with: Family Smoking Status: Former Smoker Frequency of Alcohol Use: None Hx Recreational Drug Use: No Drugs: None Hx Prescription Drug Abuse: No - Advance Directive Resuscitation Status: Full Code Family History Family History: Other - Dementia in mother Parental Family History Reviewed: Yes Children Family History Reviewed: Yes Sibling(s) Family History Reviewed.: Yes Medication/Allergy Home Medications: Albuterol Sulfate [Proair HFA] 1 puff IH Q4HP PRN 04/27/18 Atorvastatin Calcium [Lipitor 20 mg Tablet] 20 mg PO QPM 04/27/18 Clonazepam [Klonopin 1 mg Tablet] 3 mg PO QHS 04/27/18 Dexamethasone [Decadron 4 mg Tablet] 4 mg PO BID 04/27/18 Fluticasone Propionate [Flonase Nasal Bethany 50 Mcg/Bethany 16 gm] 1 spray NASL DAILYP PRN 04/27/18 Lamotrigine [Lamictal] 200 mg PO QAM 04/27/18 Lamotrigine [Lamictal] 300 mg PO QPM 04/27/18 Oxycodone Myristate [Xtampza ER] 27 mg PO Q12 04/27/18 Ranitidine HCl [Zantac 150 mg Tablet] 150 mg PO BID 04/27/18 Sennosides [Senna Laxative] 8.6 mg PO Q12 04/27/18 Allergies/Adverse Reactions: No Known Allergies Allergy (Verified 04/27/18 20:17) Review of Systems ROS unobtainable: Due to mental status Physical Exam Vital Signs: Temp Pulse Resp BP Pulse Ox 98.3 F 81 18 95/62 L 91 L 04/28/18 11:32 04/28/18 11:32 04/28/18 11:32 04/28/18 11:32 04/28/18 11:32 Intake & Output 04/27/18 04/28/18 04/29/18 06:59 06:59 06:59 Intake Total 950 Output Total 0 Balance 950 Weight 75.2 kg General appearance: PRESENT: no acute distress Head exam: PRESENT: atraumatic Mouth exam: PRESENT: dry mucosa Neck exam: ABSENT: carotid bruit, JVD, lymphadenopathy, thyromegaly Respiratory exam: PRESENT: clear to auscultation lc. ABSENT: rales, rhonchi, wheezes Cardiovascular exam: PRESENT: RRR. ABSENT: diastolic murmur, rubs, systolic murmur Pulses: PRESENT: normal dorsalis pedis pul GI/Abdominal exam: PRESENT: normal bowel sounds, soft. ABSENT: distended, guarding, mass, organolmegaly, rebound, tenderness Rectal exam: PRESENT: deferred Neurological exam: PRESENT: altered, other - Cannot lift legs, minimal strength in bilateral lower extremities. Results Laboratory Results: 04/28/18 04:33 04/28/18 04:33 04/27/18 04/28/18 04/28/18 21:41 04:33 04:33 WBC 2.4 L RBC 2.96 L Hgb 8.7 L Hct 24.2 L MCV 82 MCH 29.5 MCHC 36.0 RDW 14.7 H Plt Count 35 L Seg Neutrophils % Not Reportable Lymphocytes % Not Reportable Monocytes % Not Reportable Eosinophils % Not Reportable Basophils % Not Reportable Absolute Neutrophils Not Reportable Absolute Lymphocytes Not Reportable Absolute Monocytes Not Reportable Absolute Eosinophils Not Reportable Absolute Basophils Not Reportable Sodium 143.6 Potassium 4.0 Chloride 109 H Carbon Dioxide 26 Anion Gap 9 BUN 31 H Creatinine 0.80 Est GFR ( Amer) > 60 Est GFR (Non-Af Amer) > 60 Glucose 132 H Calcium 9.3 Total Bilirubin 1.5 H AST 30 ALT 33 Alkaline Phosphatase 136 H Total Protein 5.0 L Albumin 2.4 L Urine Color JESSICA Urine Appearance CLEAR Urine pH 5.0 Ur Specific Fisher 1.026 Urine Protein NEGATIVE Urine Glucose (UA) NEGATIVE Urine Ketones NEGATIVE Urine Blood NEGATIVE Urine Nitrite NEGATIVE Ur Leukocyte Esterase NEGATIVE Urine WBC (Auto) 1 Impressions: Lumbar Spine MRI 04/27/18 14:44 IMPRESSION: There is an expansile lesion in the right L3 pedicle and lateral mass with 6 mm of tumor encroachment on the right lateral aspect of the spinal canal. There is also an expansile lesion in the posterior T9 vertebral body with encroachment on the anterior thecal sac and moderate central stenosis. No severe stenosis or her compression. No focal spinal cord signal abnormality or enhancement. Vertebral bodies are otherwise preserved height. Marrow signal is diffusely heterogeneous with scattered irregular enhancement consistent with diffuse metastatic disease. Numerous lesions are present throughout the liver. Chest X-Ray 04/27/18 14:47 IMPRESSION: Cannot exclude left lower lobe pneumonia. Status: Image reviewed by me 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, including hip Is this a current diagnosis for this admission?: Yes Plan: Stage IV melanoma, bone metastasis, initiate dexamethasone 4 mg IV every 6 hours and see if his lower extremity strength can improve. Unfortunately he probably does have marrow involvement from the lymphoma that is causing pancytopenia. (2) Pneumonia Qualifiers: Pneumonia type: due to unspecified organism Laterality: right Lung location: lower lobe of lung Qualified Code(s): J18.1 - Lobar pneumonia, unspecified organism Is this a current diagnosis for this admission?: Yes Plan: Patient does have pneumonia, continue with IV antibiotics as appropriate. (3) Pancytopenia Is this a current diagnosis for this admission?: Yes Plan: May be multifactorial, as noted above could be related to the melanoma but also could be related to sepsis. Agree with 1 unit of packed red blood cells that was given, at present continue to monitor. (4) Encephalopathy Is this a current diagnosis for this admission?: Yes Plan: Likely multifactorial, secondary to both the pancytopenia anemia, infection as well as some relation to the melanoma as well. It is improved today however. (5) Bone metastases Is this a current diagnosis for this admission?: Yes Plan: Bone metastasis, dexamethasone as above. - Time Time Spent: Greater than 70 Minutes - Inpatient Certification Based on my medical assessment, after consideration of the patient's comorbidities, presenting symptoms, or acuity I expect that the services needed warrant INPATIENT care.: Yes I certify that my determination is in accordance with my understanding of Medicare's requirements for reasonable and necessary INPATIENT services [42 CFR 412.3e].: Yes Medical Necessity: Failure to Improve With Outpatient Therapy, Need For Continuous Telemetry Monitoring, Need for IV Antibiotics, Risk of Complication if Not Cared For in Hospital
[2018-04-28] MEDS ORDERED: NORMAL SALINE 1000 ML 1,000 ML IV PRN (15:19)
[2018-04-28] MEDS: DEXAMETHASONE 4 MG TABLET PO SCH ×2 (17:37→23:45)
[2018-04-28] MEDS: ATORVASTATIN CALCIUM 20 MG TABLET PO SCH (17:37)
[2018-04-28] MEDS: CLONAZEPAM 1 MG TABLET PO SCH (22:19)
[2018-04-29] MEDS: IPRATROPIUM/ALBUTEROL 0.5-2.5 MG/3 ML AMPUL NEB SCH ×4 (00:01→23:55)
[2018-04-29] MEDS: VANCOMYCIN HCL 1,000 MG in DEXTROSE 5%-WATER 250 ML IV SCH (06:04)
[2018-04-29] MEDS: CEFEPIME 1 GM/D5W RTU 1 GM/50 ML RTUPB IV SCH ×2 (06:04→17:29)
[2018-04-29] MEDS: DEXAMETHASONE 4 MG TABLET PO SCH ×3 (06:04→17:29)
[2018-04-29] MEDS: HEPARIN SOD (PORCINE) 5,000 UNIT/ML 1 ML SYRINGE SUBCUT SCH ×2 (06:05→15:36)
[2018-04-29 07:17] LABS: BLOOD UREA NITROGEN 18 mg/dL (7-20); CALCIUM 8.9 mg/dL (8.4-10.2); CARBON DIOXIDE 28 mmol/L (22-30); CHLORIDE 108 mmol/L (98-107); GLUCOSE 152 mg/dL (75-110); POTASSIUM 3.9 mmol/L (3.6-5.0); SODIUM 140.1 mmol/L (137-145)
[2018-04-29 07:20] LABS: VANCOMYCIN,TROUGH 11.5 ug/mL (5.0-20.0)
[2018-04-29 07:22] LABS: ANION GAP 4 (5-19)
--- NOTE | 2018-04-29 07:50 | EKG REPORT ---
SEVERITY:- OTHERWISE NORMAL ECG - SINUS RHYTHM ATRIAL PREMATURE COMPLEX : Confirmed by: Prabhu Nickerson MD 29-Apr-2018 07:48:54
[2018-04-29 07:51] LABS: HEMATOCRIT 24.1 % (37.9-51.0); HEMOGLOBIN 8.6 g/dL (13.5-17.0); MEAN CORPUSCULAR HEMOGLOBIN 29.2 pg (27.0-33.4); MEAN CORPUSCULAR HGB CONC 35.7 g/dL (32.0-36.0); MEAN CORPUSCULAR VOLUME 82 fl (80-97); RED BLOOD COUNT 2.94 10^6/uL (4.35-5.55); RED CELL DISTRIBUTION WIDTH 15.1 % (11.5-14.0); WHITE BLOOD COUNT 2.8 10^3/uL (4.0-10.5)
[2018-04-29 08:45] LABS: PLATELET COUNT 34 10^3/uL (150-450)
[2018-04-29 08:50] LABS: ABSOLUTE LYMPHOCYTES# (MANUAL) 0.3 10^3/uL (0.5-4.7); ABSOLUTE MONOCYTES # (MANUAL) 0.1 10^3/uL (0.1-1.4); ABSOLUTE NEUTROPHILS# (MANUAL) 2.4 10^3/uL (1.7-8.2); BAND NEUTROPHILS % (MANUAL) 6 % (3-5); BASOPHILS % (MANUAL) 0 % (0-2); EOSINOPHILS % (MANUAL) 1 % (0-6); LYMPHOCYTES % (MANUAL) 11 % (13-45); METAMYELOCYTES % (MANUAL) 2 % (0); MONOCYTES % (MANUAL) 4 % (3-13); SEGMENTED NEUTROPHILS % (MAN) 76 % (42-78); TOTAL CELLS COUNTED 100
[2018-04-29] MEDS: LAMOTRIGINE 100 MG TABLET PO SCH ×2 (08:53→17:29)
[2018-04-29 08:59] LABS: ANISOCYTOSIS SLIGHT; OVALOCYTES SLIGHT; PLATELET COMMENT DECREASED; POIKILOCYTOSIS SLIGHT; POLYCHROMASIA SLIGHT
[2018-04-29] MEDS: SENNOSIDES/DOCUSATE 8.6-50 MG 1 EACH TABLET PO SCH ×2 (10:06→21:12)
[2018-04-29] MEDS: OXYCODONE HCL SR 10 MG TABLET PO SCH ×2 (10:06→21:12)
--- NOTE | 2018-04-29 10:07 | PDOC PROGRESS REPORT ---
Subjective Progress Note for:: 04/29/18 Subjective:: Still confused overnight, but this am slightly more clear in mentation, was able to lift legs more than yesterday Reason For Visit: MULTIPLE MYELOMA, UTI, ENCEPHALOPATHY, WEAKNESS Physical Exam Vital Signs: Temp Pulse Resp BP Pulse Ox 98.7 F 85 20 115/73 94 04/29/18 07:13 04/29/18 07:13 04/29/18 07:13 04/29/18 07:13 04/29/18 07:13 Intake & Output 04/28/18 04/29/18 04/30/18 06:59 06:59 06:59 Intake Total 950 2145 Output Total 0 1380 Balance 950 765 Weight 75.2 kg 74.8 kg General appearance: PRESENT: no acute distress, well-developed, well-nourished Head exam: PRESENT: atraumatic, normocephalic Eye exam: PRESENT: conjunctiva pink, EOMI, PERRLA. ABSENT: scleral icterus Ear exam: PRESENT: normal external ear exam Mouth exam: PRESENT: moist, tongue midline Neck exam: ABSENT: carotid bruit, JVD, lymphadenopathy, thyromegaly Respiratory exam: PRESENT: clear to auscultation lc. ABSENT: rales, rhonchi, wheezes Cardiovascular exam: PRESENT: RRR. ABSENT: diastolic murmur, rubs, systolic murmur Pulses: PRESENT: normal dorsalis pedis pul Vascular exam: PRESENT: normal capillary refill GI/Abdominal exam: PRESENT: normal bowel sounds, soft. ABSENT: distended, guarding, mass, organolmegaly, rebound, tenderness Rectal exam: PRESENT: deferred Extremities exam: PRESENT: full ROM. ABSENT: calf tenderness, clubbing, pedal edema Neurological exam: PRESENT: alert, awake, oriented to person, oriented to place , oriented to time, oriented to situation, CN II-XII grossly intact. ABSENT: motor sensory deficit Psychiatric exam: PRESENT: appropriate affect, normal mood. ABSENT: homicidal ideation, suicidal ideation Skin exam: PRESENT: dry, intact, warm. ABSENT: cyanosis, rash Results Laboratory Results: 04/29/18 06:50 04/29/18 06:00 04/29/18 04/29/18 06:00 06:50 WBC 2.8 L RBC 2.94 L Hgb 8.6 L Hct 24.1 L MCV 82 MCH 29.2 MCHC 35.7 RDW 15.1 H Plt Count 34 L Seg Neutrophils % Not Reportable Lymphocytes % Not Reportable Monocytes % Not Reportable Eosinophils % Not Reportable Basophils % Not Reportable Absolute Neutrophils Not Reportable Absolute Lymphocytes Not Reportable Absolute Monocytes Not Reportable Absolute Eosinophils Not Reportable Absolute Basophils Not Reportable Sodium 140.1 Potassium 3.9 Chloride 108 H Carbon Dioxide 28 Anion Gap 4 L BUN 18 Creatinine 0.97 Est GFR ( Amer) > 60 Est GFR (Non-Af Amer) > 60 Glucose 152 H Calcium 8.9 04/27/18 21:41 Catheterized Urine Urine Culture - Final NO GROWTH 2 DAYS Impressions: Lumbar Spine MRI 04/27/18 14:44 IMPRESSION: There is an expansile lesion in the right L3 pedicle and lateral mass with 6 mm of tumor encroachment on the right lateral aspect of the spinal canal. There is also an expansile lesion in the posterior T9 vertebral body with encroachment on the anterior thecal sac and moderate central stenosis. No severe stenosis or her compression. No focal spinal cord signal abnormality or enhancement. Vertebral bodies are otherwise preserved height. Marrow signal is diffusely heterogeneous with scattered irregular enhancement consistent with diffuse metastatic disease. Numerous lesions are present throughout the liver. Chest X-Ray 04/27/18 14:47 IMPRESSION: Cannot exclude left lower lobe pneumonia. 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, including hip Is this a current diagnosis for this admission?: Yes Plan: Possible progression, will order CT head, chest abd pelvis to see about progression. If we see diffuse brain mets, this is probable cause of worsened mental status and LE weakness. (2) Pneumonia Qualifiers: Pneumonia type: due to unspecified organism Laterality: right Lung location: lower lobe of lung Qualified Code(s): J18.1 - Lobar pneumonia, unspecified organism Is this a current diagnosis for this admission?: Yes Plan: Cont atbx (3) Pancytopenia Is this a current diagnosis for this admission?: Yes Plan: Multifactorial, labs pending (4) Encephalopathy Is this a current diagnosis for this admission?: Yes Plan: As above, multifactorial, CT head pending (5) Bone metastases Is this a current diagnosis for this admission?: Yes Plan: No cord compression, cont pain meds
--- NOTE | 2018-04-29 16:10 | PDOC PROGRESS REPORT ---
Subjective Progress Note for:: 04/29/18 Subjective:: Admitted with altered mental status, weakness however patient appears to be better today. He is more awake and oriented. Reason For Visit: MULTIPLE MYELOMA, UTI, ENCEPHALOPATHY, WEAKNESS Physical Exam Vital Signs: Temp Pulse Resp BP Pulse Ox 98.6 F 73 18 114/67 93 04/29/18 10:54 04/29/18 15:50 04/29/18 15:50 04/29/18 10:54 04/29/18 15:50 Intake & Output 04/28/18 04/29/18 04/30/18 06:59 06:59 06:59 Intake Total 950 2145 Output Total 0 1380 Balance 950 765 Weight 75.2 kg 74.8 kg General appearance: PRESENT: no acute distress, well-developed, well-nourished Head exam: PRESENT: atraumatic, normocephalic Eye exam: PRESENT: conjunctiva pink, EOMI, PERRLA. ABSENT: scleral icterus Ear exam: PRESENT: normal external ear exam Mouth exam: PRESENT: moist, tongue midline Neck exam: ABSENT: carotid bruit, JVD, lymphadenopathy, thyromegaly Respiratory exam: PRESENT: clear to auscultation lc. ABSENT: rales, rhonchi, wheezes Cardiovascular exam: PRESENT: RRR. ABSENT: diastolic murmur, rubs, systolic murmur Pulses: PRESENT: normal dorsalis pedis pul Vascular exam: PRESENT: normal capillary refill GI/Abdominal exam: PRESENT: normal bowel sounds, soft. ABSENT: distended, guarding, mass, organolmegaly, rebound, tenderness Rectal exam: PRESENT: deferred Extremities exam: PRESENT: full ROM. ABSENT: calf tenderness, clubbing, pedal edema Neurological exam: PRESENT: alert, awake, oriented to place, oriented to situation, other - Still has lower extremity weakness. ABSENT: motor sensory deficit Psychiatric exam: PRESENT: appropriate affect, normal mood. ABSENT: homicidal ideation, suicidal ideation Skin exam: PRESENT: dry, intact, warm. ABSENT: cyanosis, rash Results Laboratory Results: 04/29/18 06:50 04/29/18 06:00 04/29/18 04/29/18 06:00 06:50 WBC 2.8 L RBC 2.94 L Hgb 8.6 L Hct 24.1 L MCV 82 MCH 29.2 MCHC 35.7 RDW 15.1 H Plt Count 34 L Seg Neutrophils % Not Reportable Lymphocytes % Not Reportable Monocytes % Not Reportable Eosinophils % Not Reportable Basophils % Not Reportable Absolute Neutrophils Not Reportable Absolute Lymphocytes Not Reportable Absolute Monocytes Not Reportable Absolute Eosinophils Not Reportable Absolute Basophils Not Reportable Sodium 140.1 Potassium 3.9 Chloride 108 H Carbon Dioxide 28 Anion Gap 4 L BUN 18 Creatinine 0.97 Est GFR ( Amer) > 60 Est GFR (Non-Af Amer) > 60 Glucose 152 H Calcium 8.9 04/27/18 21:41 Catheterized Urine Urine Culture - Final NO GROWTH 2 DAYS Impressions: Lumbar Spine MRI 04/27/18 14:44 IMPRESSION: There is an expansile lesion in the right L3 pedicle and lateral mass with 6 mm of tumor encroachment on the right lateral aspect of the spinal canal. There is also an expansile lesion in the posterior T9 vertebral body with encroachment on the anterior thecal sac and moderate central stenosis. No severe stenosis or her compression. No focal spinal cord signal abnormality or enhancement. Vertebral bodies are otherwise preserved height. Marrow signal is diffusely heterogeneous with scattered irregular enhancement consistent with diffuse metastatic disease. Numerous lesions are present throughout the liver. Chest X-Ray 04/27/18 14:47 IMPRESSION: Cannot exclude left lower lobe pneumonia. Assessment & Plan - Diagnosis (1) Pneumonia Qualifiers: Pneumonia type: due to unspecified organism Laterality: right Lung location: lower lobe of lung Qualified Code(s): J18.1 - Lobar pneumonia, unspecified organism Is this a current diagnosis for this admission?: Yes Plan: We will continue empiric vancomycin and cefepime (2) Bone metastases Is this a current diagnosis for this admission?: Yes (3) Encephalopathy Is this a current diagnosis for this admission?: Yes Plan: Multifactorial (4) Melanoma Qualifiers: Melanoma location: lower extremity including hip Laterality: left Qualified Code(s): C43.72 - Malignant melanoma of left lower limb, including hip Is this a current diagnosis for this admission?: Yes (5) Pancytopenia Is this a current diagnosis for this admission?: Yes Plan: H&H remained stable. His platelet count is 35,000. There is no evidence of bleeding. Heparin has been discontinued - Time Time Spent with patient: 15-24 minutes Medications reviewed and adjusted accordingly: Yes Anticipated discharge: Home - Inpatient Certification Based on my medical assessment, after consideration of the patient's comorbidities, presenting symptoms, or acuity I expect that the services needed warrant INPATIENT care.: Yes Medical Necessity: Significant Comorbidiites Make Outpatient Treatment Too Risky , Need for IV Antibiotics
[2018-04-29] MEDS: VANCOMYCIN HCL 1,250 MG in DEXTROSE 5%-WATER 250 ML IV SCH (17:29)
[2018-04-29] MEDS: ATORVASTATIN CALCIUM 20 MG TABLET PO SCH (17:29)
--- NOTE | 2018-04-29 20:39 | RADIOLOGY REPORT (SQ) ---
EXAM DESCRIPTION: CT CHEST WITH; CT ABD/PELVIS WITH IV ONLY COMPLETED DATE/TIME: 04/29/2018 6:18 pm REASON FOR STUDY: melanoma COMPARISON: CT chest abdomen and pelvis [id number] PET-CT 03/13/2018 MRI lumbar sites and MRI thoracic spine 03/16/2018 Lumbar spine 04/27/2018 CONTRAST TYPE AND DOSE: contrast/concentration: Isovue 370.00 mg/ml; Total Contrast Delivered: 80.0 ml; Total Saline Delivered: 68.0 ml RENAL FUNCTION: Creatinine 1.0 TECHNIQUE: CT scan of the chest performed using helical scanning technique with dynamic intravenous contrast injection. Images reviewed with lung, soft tissue and bone windows. Reconstructed coronal a nd sagittal MPR images reviewed. All images stored on PACS. CT scan of the abdomen and pelvis performed with intravenous and with oral contrastusing helical scan frank technique with dynamic intravenous contrast injection. Images reviewed with lung, soft tissue a nd bone windows. Reconstructed coronal and sagittal MPR images reviewed. Delayed images for evaluat ion of the urinary system also acquired and evaluated. All images stored on PACS. All CT scanners at this facility use dose modulation, iterative reconstruction, and/or weight based d osing when appropriate to reduce radiation dose to as low as reasonably achievable (ALARA). [facility]: Dose Right [facility]: CareDose [facility]: Dose Right [facility]: Teradose 4D [facility]: [employer] RADIATION DOSE: CT Rad equipment meets quality standard of care and radiation dose reduction techniq ues were employed. CTDIvol: 14.7 - 19.0 mGy. DLP: 2202 mGy-cm. . LIMITATIONS: None. FINDINGS: CHEST: LUNGS AND PLEURA: Right upper lobe nodule now measures 2.2 x 1.4 cm in size (was 2 x 0.9 cm in size o n 03/13/2018). There is bandlike atelectasis in the right lower lobe and bilateral posterior costophrenic sulci. HILAR AND MEDIASTINAL STRUCTURES: Right supraclavicular lymph node 1.9 x 1.1 cm in size (was 1.6 x 1. 1 cm on 03/15/2018). Right paratracheal lymph node 2.7 x 2.4 cm in size (was 1.5 x 1.5 cm on 03/13/2018). HEART AND VASCULAR STRUCTURES: No aneurysm or dissection. No central pulmonary emboli. No pericardi al effusion. HARDWARE: None. THYROID AND OTHER SOFT TISSUES: Left shoulder skin lesion 4 x 2 cm in size BONES: There is progression of bony metastatic disease. T7 vertebral body is involved with tumor, wi th mild ventral epidural tumor in the spinal canal. T9 vertebral body involved with tumor, along wit h the left pedicle. Mild 25% loss of height of T9. Leftward and ventral epidural tumor is present. The T12 and L1 vertebral bodies are involved with tumor, with ventral epidural tumor present. OTHER: No other significant finding. ABDOMEN AND PELVIS: LIVER: Increase in size and number of multiple liver lesions compared to 03/13/2018. SPLEEN: Normal size. No focal lesions. PANCREAS: No masses. No significant calcifications. No adjacent inflammation or peripancreatic fluid collections. Pancreatic duct not dilated. GALLBLADDER: No identified stones by CT criteria. No inflammatory changes to suggest cholecystitis. ADRENAL GLANDS: No significant masses or asymmetry. RIGHT KIDNEY AND URETER: No solid masses. No significant calcification. No hydronephrosis or hydroure ter. LEFT KIDNEY AND URETER: No solid masses. No significant calcification. No hydronephrosis or hydrouret er. AORTA AND VESSELS: No aneurysm. No dissection. Renal arteries, SMA, celiac without stenosis. RETROPERITONEUM: No retroperitoneal adenopathy, hemorrhage or masses. BOWEL AND PERITONEAL CAVITY: No masses or inflammatory changes. No free fluid or peritoneal masses. APPENDIX: Normal. ABDOMINAL WALL: No masses. No hernias. PELVIS: No mass or free fluid. Normal bladder. BONES: Right L3 pedicle is destroyed with tumor, moderate rightward L3 lateral and ventral epidural t umor. OTHER: No other significant finding. IMPRESSION: Progression of bony metastatic disease and epidural tumor in the thoracic and lumbar spi ne Increase in size of right upper lobe lung metastatic nodule, upper mediastinal adenopathy. Increase in size and number of multiple liver lesions. NORMAL CT OF THE ABDOMEN AND PELVIS WITH ORAL AND INTRAVENOUS CONTRAST. TECHNICAL DOCUMENTATION: JOB ID: [id number] Quality ID # [id number]: Final reports with documentation of one or more dose reduction techniques (e.g., Au tomated exposure control, adjustment of the mA and/or kV according to patient size, use of iterative reconstruction technique) 2010 [employer]- All Rights Reserved Reading location - IP/workstation name: [email or web address] DANIEL
[2018-04-29] MEDS: CLONAZEPAM 1 MG TABLET PO SCH (21:12)
--- NOTE | 2018-04-29 22:00 | RADIOLOGY REPORT (SQ) ---
EXAM DESCRIPTION: CT HEAD COMBO COMPLETED DATE/TIME: 04/29/2018 6:18 pm REASON FOR STUDY: melanoma COMPARISON: MRI 04/06/2018 TECHNIQUE: Axial images acquired through the brain without and with intravenous contrast. Images re viewed with bone, brain and subdural windows. Images stored on PACS. All CT scanners at this facility use dose modulation, iterative reconstruction, and/or weight based d osing when appropriate to reduce radiation dose to as low as reasonably achievable (ALARA). [facility]: Dose Right [facility]: CareDose [facility]: Dose Right [facility]: Teradose 4D [facility]: Modern Feed CONTRAST TYPE AND DOSE: 80 mL Isovue 370- low osmolar. RENAL FUNCTION: GFR > 60. RADIATION DOSE: CT Rad equipment meets quality standard of care and radiation dose reduction techniq ues were employed. CTDIvol: 53.2 mGy. DLP: 1017 mGy-cm.. LIMITATIONS: None. FINDINGS: VENTRICLES: Normal size and contour. CEREBRUM: The previously seen dural-based metastatic lesion in the right frontotemporal region has in creased in size, currently measuring 3.5 cm in greatest dimension, previously 2.9 cm a similar plane of measurement. No hemorrhage. No midline shift. No evidence for acute infarction. CEREBELLUM: No masses. No hemorrhage. No alteration of density. No evidence for acute infarction. EXTRA-AXIAL SPACES: The previously seen dural-based metastatic lesion in the right frontotemporal reg ion has increased in size, currently measuring 3.5 cm in greatest dimension, previously 2.9 cm a jose francisco lar plane of measurement. ORBITS AND GLOBE: No intra- or extraconal masses. Normal contour of globe without masses. CALVARIUM: No fracture. PARANASAL SINUSES: No fluid or mucosal thickening. SOFT TISSUES: No mass or hematoma. OTHER: No other significant finding. IMPRESSION: The previously seen dural-based metastatic lesion in the right frontotemporal region has increased in size, currently measuring 3.5 cm in greatest dimension, previously 2.9 cm in a similar plane of measurement. EVIDENCE OF ACUTE STROKE: NO. TECHNICAL DOCUMENTATION: JOB ID: [id number] [place]-72 Quality ID # [id number]: Final reports with documentation of one or more dose reduction techniques (e.g., Au tomated exposure control, adjustment of the mA and/or kV according to patient size, use of iterative reconstruction technique) 2010 [employer]- All Rights Reserved Reading location - IP/workstation name: [email or web address]
[2018-04-29] MEDS ORDERED: CEFEPIME 1 GM/D5W RTU 0 GM/0 ML RTUPB IV ONE (23:05)
[2018-04-30] MEDS: DEXAMETHASONE 4 MG TABLET PO SCH ×5 (00:10→23:51)
[2018-04-30] MEDS ORDERED: POLYETHYLENE GLYCOL 3350 POWDER 17 GM/1 PACKET PO ONE (00:45)
[2018-04-30] MEDS: VANCOMYCIN HCL 1,250 MG in DEXTROSE 5%-WATER 250 ML IV SCH ×2 (05:22→18:12)
[2018-04-30] MEDS: CEFEPIME 1 GM/D5W RTU 1 GM/50 ML RTUPB IV SCH ×2 (05:22→18:12)
[2018-04-30] MEDS: IPRATROPIUM/ALBUTEROL 0.5-2.5 MG/3 ML AMPUL NEB SCH ×2 (08:18→16:03)
--- NOTE | 2018-04-30 08:39 | PDOC PROGRESS REPORT ---
Subjective Progress Note for:: 04/30/18 Subjective:: Today has long discussion w/ family, pt was more communicative but still confused, not able to make decisions, discussed findings on CT, overt progression of dx in brain and spine which is likely cause of worsened weakness and inc confusion. Discussed hospice and DNR and cris will talk to Shanna from [facility] today and likely plan D/C w/ hospice. D/c'd silverman catheter to see if pt can urinate on his own, asked PT to see him to assess functional status Overall spent >45 min in discussion and coordination of care Reason For Visit: MULTIPLE MYELOMA, UTI, ENCEPHALOPATHY, WEAKNESS Physical Exam Vital Signs: Temp Pulse Resp BP Pulse Ox 97.5 F 88 18 129/77 H 96 04/30/18 07:20 04/30/18 07:20 04/30/18 07:20 04/30/18 07:20 04/30/18 07:20 Intake & Output 04/29/18 04/30/18 05/01/18 06:59 06:59 06:59 Intake Total 2145 3304 Output Total 1380 1350 Balance 765 1954 Weight 74.8 kg 74.5 kg General appearance: PRESENT: no acute distress, well-developed, well-nourished Head exam: PRESENT: atraumatic, normocephalic Eye exam: PRESENT: conjunctiva pink, EOMI, PERRLA. ABSENT: scleral icterus Ear exam: PRESENT: normal external ear exam Mouth exam: PRESENT: moist, tongue midline Neck exam: ABSENT: carotid bruit, JVD, lymphadenopathy, thyromegaly Respiratory exam: PRESENT: clear to auscultation lc. ABSENT: rales, rhonchi, wheezes Cardiovascular exam: PRESENT: RRR. ABSENT: diastolic murmur, rubs, systolic murmur Pulses: PRESENT: normal dorsalis pedis pul Vascular exam: PRESENT: normal capillary refill GI/Abdominal exam: PRESENT: normal bowel sounds, soft. ABSENT: distended, guarding, mass, organolmegaly, rebound, tenderness Rectal exam: PRESENT: deferred Extremities exam: PRESENT: full ROM. ABSENT: calf tenderness, clubbing, pedal edema Neurological exam: PRESENT: alert, awake, oriented to person, oriented to place , oriented to time, oriented to situation, CN II-XII grossly intact. ABSENT: motor sensory deficit Psychiatric exam: PRESENT: appropriate affect, normal mood. ABSENT: homicidal ideation, suicidal ideation Skin exam: PRESENT: dry, intact, warm. ABSENT: cyanosis, rash Results Laboratory Results: 04/29/18 06:50 04/29/18 06:00 04/29/18 06:50 WBC 2.8 L RBC 2.94 L Hgb 8.6 L Hct 24.1 L MCV 82 MCH 29.2 MCHC 35.7 RDW 15.1 H Plt Count 34 L Seg Neutrophils % Not Reportable Lymphocytes % Not Reportable Monocytes % Not Reportable Eosinophils % Not Reportable Basophils % Not Reportable Absolute Neutrophils Not Reportable Absolute Lymphocytes Not Reportable Absolute Monocytes Not Reportable Absolute Eosinophils Not Reportable Absolute Basophils Not Reportable 04/27/18 21:41 Catheterized Urine Urine Culture - Final NO GROWTH 2 DAYS Impressions: Lumbar Spine MRI 04/27/18 14:44 IMPRESSION: There is an expansile lesion in the right L3 pedicle and lateral mass with 6 mm of tumor encroachment on the right lateral aspect of the spinal canal. There is also an expansile lesion in the posterior T9 vertebral body with encroachment on the anterior thecal sac and moderate central stenosis. No severe stenosis or her compression. No focal spinal cord signal abnormality or enhancement. Vertebral bodies are otherwise preserved height. Marrow signal is diffusely heterogeneous with scattered irregular enhancement consistent with diffuse metastatic disease. Numerous lesions are present throughout the liver. Chest X-Ray 04/27/18 14:47 IMPRESSION: Cannot exclude left lower lobe pneumonia. Abdomen/Pelvis CT 04/29/18 17:00 IMPRESSION: Progression of bony metastatic disease and epidural tumor in the thoracic and lumbar spine Increase in size of right upper lobe lung metastatic nodule, upper mediastinal adenopathy. Increase in size and number of multiple liver lesions. NORMAL CT OF THE ABDOMEN AND PELVIS WITH ORAL AND INTRAVENOUS CONTRAST. Chest CT 04/29/18 17:00 IMPRESSION: Progression of bony metastatic disease and epidural tumor in the thoracic and lumbar spine Increase in size of right upper lobe lung metastatic nodule, upper mediastinal adenopathy. Increase in size and number of multiple liver lesions. NORMAL CT OF THE ABDOMEN AND PELVIS WITH ORAL AND INTRAVENOUS CONTRAST. Head CT 04/29/18 17:00 IMPRESSION: The previously seen dural-based metastatic lesion in the right frontotemporal region has increased in size, currently measuring 3.5 cm in greatest dimension, previously 2.9 cm in a similar plane of measurement. EVIDENCE OF ACUTE STROKE: NO. 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, including hip Is this a current diagnosis for this admission?: Yes Plan: Progression, no further rx possible, hospice to see pt today, DNR in place (2) Pneumonia Qualifiers: Pneumonia type: due to unspecified organism Laterality: right Lung location: lower lobe of lung Qualified Code(s): J18.1 - Lobar pneumonia, unspecified organism Is this a current diagnosis for this admission?: Yes Plan: Cont atbx but can d/c vanc, would give oral atbx course on dc (3) Pancytopenia Is this a current diagnosis for this admission?: Yes Plan: 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
--- NOTE | 2018-04-30 10:52 | PDOC PROGRESS REPORT ---
Subjective Progress Note for:: 04/30/18 Subjective:: Admitted with altered mental status, weakness however patient appears to be better today. CT abd/pelvis noted and Dr. Estrella has discussed with family. At this point they are waiting for hospice consult. He is DNR. Family is requesting PT etc Reason For Visit: MULTIPLE MYELOMA, UTI, ENCEPHALOPATHY, WEAKNESS Physical Exam Vital Signs: Temp Pulse Resp BP Pulse Ox 97.5 F 86 18 129/77 H 94 04/30/18 07:20 04/30/18 08:18 04/30/18 08:18 04/30/18 07:20 04/30/18 08:18 Intake & Output 04/29/18 04/30/18 05/01/18 06:59 06:59 06:59 Intake Total 2145 3304 Output Total 1380 1350 Balance 765 1954 Weight 74.8 kg 74.5 kg General appearance: PRESENT: no acute distress, well-developed, well-nourished Head exam: PRESENT: atraumatic, normocephalic Eye exam: PRESENT: conjunctiva pink, EOMI, PERRLA. ABSENT: scleral icterus Ear exam: PRESENT: normal external ear exam Mouth exam: PRESENT: moist, tongue midline Neck exam: ABSENT: carotid bruit, JVD, lymphadenopathy, thyromegaly Respiratory exam: PRESENT: clear to auscultation lc. ABSENT: rales, rhonchi, wheezes Cardiovascular exam: PRESENT: RRR. ABSENT: diastolic murmur, rubs, systolic murmur Pulses: PRESENT: normal dorsalis pedis pul Vascular exam: PRESENT: normal capillary refill GI/Abdominal exam: PRESENT: normal bowel sounds, soft. ABSENT: distended, guarding, mass, organolmegaly, rebound, tenderness Rectal exam: PRESENT: deferred Extremities exam: PRESENT: full ROM. ABSENT: calf tenderness, clubbing, pedal edema Neurological exam: PRESENT: alert, motor sensory deficit, other - confused Psychiatric exam: PRESENT: appropriate affect, normal mood. ABSENT: homicidal ideation, suicidal ideation Skin exam: PRESENT: dry, intact, warm. ABSENT: cyanosis, rash Results Laboratory Results: 04/29/18 06:50 04/29/18 06:00 04/27/18 21:41 Catheterized Urine Urine Culture - Final NO GROWTH 2 DAYS Impressions: Lumbar Spine MRI 04/27/18 14:44 IMPRESSION: There is an expansile lesion in the right L3 pedicle and lateral mass with 6 mm of tumor encroachment on the right lateral aspect of the spinal canal. There is also an expansile lesion in the posterior T9 vertebral body with encroachment on the anterior thecal sac and moderate central stenosis. No severe stenosis or her compression. No focal spinal cord signal abnormality or enhancement. Vertebral bodies are otherwise preserved height. Marrow signal is diffusely heterogeneous with scattered irregular enhancement consistent with diffuse metastatic disease. Numerous lesions are present throughout the liver. Chest X-Ray 04/27/18 14:47 IMPRESSION: Cannot exclude left lower lobe pneumonia. Abdomen/Pelvis CT 04/29/18 17:00 IMPRESSION: Progression of bony metastatic disease and epidural tumor in the thoracic and lumbar spine Increase in size of right upper lobe lung metastatic nodule, upper mediastinal adenopathy. Increase in size and number of multiple liver lesions. NORMAL CT OF THE ABDOMEN AND PELVIS WITH ORAL AND INTRAVENOUS CONTRAST. Chest CT 04/29/18 17:00 IMPRESSION: Progression of bony metastatic disease and epidural tumor in the thoracic and lumbar spine Increase in size of right upper lobe lung metastatic nodule, upper mediastinal adenopathy. Increase in size and number of multiple liver lesions. NORMAL CT OF THE ABDOMEN AND PELVIS WITH ORAL AND INTRAVENOUS CONTRAST. Head CT 04/29/18 17:00 IMPRESSION: The previously seen dural-based metastatic lesion in the right frontotemporal region has increased in size, currently measuring 3.5 cm in greatest dimension, previously 2.9 cm in a similar plane of measurement. EVIDENCE OF ACUTE STROKE: NO. Assessment & Plan - Diagnosis (1) Pneumonia Qualifiers: Pneumonia type: due to unspecified organism Laterality: right Lung location: lower lobe of lung Qualified Code(s): J18.1 - Lobar pneumonia, unspecified organism Is this a current diagnosis for this admission?: Yes Plan: Will continue treatment until change in status (2) Bone metastases Is this a current diagnosis for this admission?: Yes Plan: Progressive (3) Encephalopathy Is this a current diagnosis for this admission?: Yes Plan: Improved (4) Melanoma Qualifiers: Melanoma location: lower extremity including hip Laterality: left Qualified Code(s): C43.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
[2018-04-30] MEDS: OXYCODONE HCL SR 10 MG TABLET PO SCH ×2 (10:59→22:08)
[2018-04-30] MEDS: POLYETHYLENE GLYCOL 3350 POWDER 17 GM/1 PACKET PO SCH (11:00)
[2018-04-30] MEDS: LAMOTRIGINE 100 MG TABLET PO SCH ×2 (11:00→18:12)
[2018-04-30] MEDS: SENNOSIDES/DOCUSATE 8.6-50 MG 1 EACH TABLET PO SCH ×2 (11:00→22:08)
[2018-04-30] MEDS: ATORVASTATIN CALCIUM 20 MG TABLET PO SCH (18:11)
[2018-04-30] MEDS ORDERED: LORAZEPAM INJ 2 MG/1 ML VIAL IV PRN (19:02)
[2018-04-30] MEDS: CLONAZEPAM 1 MG TABLET PO SCH (22:07)
[2018-05-01] MEDS: IPRATROPIUM/ALBUTEROL 0.5-2.5 MG/3 ML AMPUL NEB SCH ×3 (00:32→16:17)
[2018-05-01] MEDS: CEFEPIME 1 GM/D5W RTU 1 GM/50 ML RTUPB IV SCH (05:12)
[2018-05-01] MEDS: DEXAMETHASONE 4 MG TABLET PO SCH ×2 (06:36→15:26)
--- NOTE | 2018-05-01 08:44 | PDOC PROGRESS REPORT ---
Subjective Progress Note for:: 05/01/18 Subjective:: No acute events noted overnight but patient was able to stand with the help of physical therapy yesterday, and walk a few steps. Family did meet with hospice yesterday, and the plan is for discharge on home hospice once all of the equipment has been delivered to the home. Reason For Visit: MULTIPLE MYELOMA, UTI, ENCEPHALOPATHY, WEAKNESS Physical Exam Vital Signs: Temp Pulse Resp BP Pulse Ox 97.4 F 73 16 131/81 H 93 05/01/18 07:21 05/01/18 07:35 05/01/18 07:35 05/01/18 07:21 05/01/18 07:35 Intake & Output 04/30/18 05/01/18 05/02/18 06:59 06:59 06:59 Intake Total 3304 2829 Output Total 1350 1450 Balance 1954 1379 Weight 74.5 kg 76 kg General appearance: PRESENT: no acute distress, well-developed, well-nourished Head exam: PRESENT: atraumatic, normocephalic Eye exam: PRESENT: conjunctiva pink, EOMI, PERRLA. ABSENT: scleral icterus Ear exam: PRESENT: normal external ear exam Mouth exam: PRESENT: moist, tongue midline Neck exam: ABSENT: carotid bruit, JVD, lymphadenopathy, thyromegaly Respiratory exam: PRESENT: clear to auscultation lc. ABSENT: rales, rhonchi, wheezes Cardiovascular exam: PRESENT: RRR. ABSENT: diastolic murmur, rubs, systolic murmur Pulses: PRESENT: normal dorsalis pedis pul Vascular exam: PRESENT: normal capillary refill GI/Abdominal exam: PRESENT: normal bowel sounds, soft. ABSENT: distended, guarding, mass, organolmegaly, rebound, tenderness Rectal exam: PRESENT: deferred Extremities exam: PRESENT: full ROM. ABSENT: calf tenderness, clubbing, pedal edema Neurological exam: PRESENT: alert, awake, oriented to person, oriented to place , oriented to time, oriented to situation, CN II-XII grossly intact. ABSENT: motor sensory deficit Psychiatric exam: PRESENT: appropriate affect, normal mood. ABSENT: homicidal ideation, suicidal ideation Skin exam: PRESENT: dry, intact, warm. ABSENT: cyanosis, rash Results Laboratory Results: 04/29/18 06:50 05/01/18 05:45 05/01/18 05:45 Creatinine 0.79 Est GFR ( Amer) > 60 Est GFR (Non-Af Amer) > 60 Impressions: Lumbar Spine MRI 04/27/18 14:44 IMPRESSION: There is an expansile lesion in the right L3 pedicle and lateral mass with 6 mm of tumor encroachment on the right lateral aspect of the spinal canal. There is also an expansile lesion in the posterior T9 vertebral body with encroachment on the anterior thecal sac and moderate central stenosis. No severe stenosis or her compression. No focal spinal cord signal abnormality or enhancement. Vertebral bodies are otherwise preserved height. Marrow signal is diffusely heterogeneous with scattered irregular enhancement consistent with diffuse metastatic disease. Numerous lesions are present throughout the liver. Chest X-Ray 04/27/18 14:47 IMPRESSION: Cannot exclude left lower lobe pneumonia. Abdomen/Pelvis CT 04/29/18 17:00 IMPRESSION: Progression of bony metastatic disease and epidural tumor in the thoracic and lumbar spine Increase in size of right upper lobe lung metastatic nodule, upper mediastinal adenopathy. Increase in size and number of multiple liver lesions. NORMAL CT OF THE ABDOMEN AND PELVIS WITH ORAL AND INTRAVENOUS CONTRAST. Chest CT 04/29/18 17:00 IMPRESSION: Progression of bony metastatic disease and epidural tumor in the thoracic and lumbar spine Increase in size of right upper lobe lung metastatic nodule, upper mediastinal adenopathy. Increase in size and number of multiple liver lesions. NORMAL CT OF THE ABDOMEN AND PELVIS WITH ORAL AND INTRAVENOUS CONTRAST. Head CT 04/29/18 17:00 IMPRESSION: The previously seen dural-based metastatic lesion in the right frontotemporal region has increased in size, currently measuring 3.5 cm in greatest dimension, previously 2.9 cm in a similar plane of measurement. EVIDENCE OF ACUTE STROKE: NO. 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, including hip Is this a current diagnosis for this admission?: Yes Plan: No further treatment plan, hospice planned (2) Pneumonia Qualifiers: Pneumonia type: due to unspecified organism Laterality: right Lung location: lower lobe of lung Qualified Code(s): J18.1 - Lobar pneumonia, unspecified organism Is this a current diagnosis for this admission?: Yes Plan: Continue with current antibiotics, with DC of vancomycin. He can continue on a short course of oral antibiotics when discharge. Consider Levaquin daily for 5- 7 days on discharge (3) Pancytopenia Is this a current diagnosis for this admission?: Yes Plan: Likely secondary to bone marrow infiltration from the melanoma, no further workup or treatment (4) Encephalopathy Is this a current diagnosis for this admission?: Yes Plan: Secondary to brain metastasis, improved, he will need to be discharged on oral steroids (5) Bone metastases Is this a current diagnosis for this admission?: Yes Plan: Continue current pain regimen
[2018-05-01] MEDS: VANCOMYCIN HCL 1,250 MG in DEXTROSE 5%-WATER 250 ML IV SCH (08:56)
[2018-05-01 09:31] LABS: VANCOMYCIN,TROUGH 15.3 ug/mL (5.0-20.0)
[2018-05-01] MEDS: POLYETHYLENE GLYCOL 3350 POWDER 17 GM/1 PACKET PO SCH (10:34)
[2018-05-01] MEDS: SENNOSIDES/DOCUSATE 8.6-50 MG 1 EACH TABLET PO SCH (10:34)
[2018-05-01] MEDS: LAMOTRIGINE 100 MG TABLET PO SCH (10:39)
[2018-05-01] MEDS: OXYCODONE HCL SR 10 MG TABLET PO SCH (10:39)
[2018-05-01 16:17] VITALS: BP 130/81
--- NOTE | 2018-05-01 16:28 | PDOC DISCHARGE SUMMARY ---
General - Admit/Disc Date/PCP Admission Date/Primary Care Provider: 04/27/18 21:12 Austyn HOBBS Discharge Date: 05/01/18 - Discharge Diagnosis (1) Pneumonia Is this a current diagnosis for this admission?: Yes (2) Bone metastases Is this a current diagnosis for this admission?: Yes (3) Encephalopathy Is this a current diagnosis for this admission?: Yes (4) Melanoma Is this a current diagnosis for this admission?: Yes (5) Pancytopenia Is this a current diagnosis for this admission?: Yes - Additional Information Resuscitation Status: Do Not Resuscitate Discharge Diet: As Tolerated Discharge Activity: Activity As Tolerated, Balance Activity w/Rest Prescriptions: Alprazolam [Xanax 0.5 mg Tablet] 0.5 mg PO QHS #20 tab Dexamethasone [Decadron 4 mg Tablet] 4 mg PO Q6 30 Days #120 tablet Levofloxacin [Levaquin 500 mg Tablet] 500 mg PO DAILY #5 tablet Home Medications: Albuterol Sulfate [Proair HFA] 1 puff IH Q4HP PRN 04/27/18 Atorvastatin Calcium [Lipitor 20 mg Tablet] 20 mg PO QPM 04/27/18 Clonazepam [Klonopin 1 mg Tablet] 3 mg PO QHS 04/27/18 Fluticasone Propionate [Flonase Nasal [place] 50 Mcg/[place] 16 gm] 1 spray NASL DAILYP PRN 04/27/18 Lamotrigine [Lamictal] 200 mg PO QAM 04/27/18 Lamotrigine [Lamictal] 300 mg PO QPM 04/27/18 Oxycodone Myristate [Xtampza ER] 27 mg PO Q12 04/27/18 Sennosides [Senna Laxative] 8.6 mg PO Q12 04/27/18 Polyethylene Glycol 3350 [Miralax Powder 17 gm/Packet] 1 packet PO AC PRN Alprazolam [Xanax 0.5 mg Tablet] 0.5 mg PO QHS #20 tab 05/01/18 Dexamethasone [Decadron 4 mg Tablet] 4 mg PO Q6 30 Days #120 tablet 05/01/18 Levofloxacin [Levaquin 500 mg Tablet] 500 mg PO DAILY #5 tablet 05/01/18 History of Present Illness History of Present Illness: CECILLE GAGNON is a 58 year old male Hospital Course Hospital Course: This patient was admittedWith pain that has been progressive. He has a history of melanoma with metastases and imaging studies done during this admission revealed progression of his disease with widespread metastasis to the spine. CT of the brain reveals dural based metastatic lesion in the right frontotemporal region that has increased in size there is progression of bony metastatic disease and epidural tomorrow in the thoracic and lumbar spine as well as increase in size of right upper lobe lung metastatic nodule upper mediastinal adenopathy and increase in size and number of multiple liver lesions Patient was also been treated for pneumonia. He has made minimal improvement. The motion of his underlying metastatic lesion with very little chance of treatment discussion was held by the oncologist with the family and patient was made comfort care. He is been discharged home with hospice. Physical Exam Vital Signs: Temp Pulse Resp BP Pulse Ox 97.4 F 84 18 130/81 H 94 05/01/18 16:14 05/01/18 16:14 05/01/18 16:14 05/01/18 16:14 05/01/18 16:14 Intake & Output 04/30/18 05/01/18 05/02/18 06:59 06:59 06:59 Intake Total 3304 2829 Output Total 1350 1450 Balance 1954 1379 Weight 74.5 kg 76 kg General appearance: PRESENT: no acute distress, well-developed, well-nourished Head exam: PRESENT: atraumatic, normocephalic Eye exam: PRESENT: conjunctiva pink, EOMI, PERRLA. ABSENT: scleral icterus Ear exam: PRESENT: normal external ear exam Mouth exam: PRESENT: moist, tongue midline Neck exam: ABSENT: carotid bruit, JVD, lymphadenopathy, thyromegaly Respiratory exam: PRESENT: clear to auscultation lc. ABSENT: rales, rhonchi, wheezes Cardiovascular exam: PRESENT: RRR. ABSENT: diastolic murmur, rubs, systolic murmur Pulses: PRESENT: normal dorsalis pedis pul Vascular exam: PRESENT: normal capillary refill GI/Abdominal exam: PRESENT: normal bowel sounds, soft. ABSENT: distended, guarding, mass, organolmegaly, rebound, tenderness Rectal exam: PRESENT: deferred Extremities exam: PRESENT: full ROM. ABSENT: calf tenderness, clubbing, pedal edema Neurological exam: PRESENT: alert, awake, oriented to situation, other - Confused but pleasant. ABSENT: motor sensory deficit Psychiatric exam: PRESENT: appropriate affect, homicidal ideation, suicidal ideation Skin exam: PRESENT: dry, intact, warm. ABSENT: cyanosis, rash Results Laboratory Results: 04/29/18 06:50 05/01/18 05:45 05/01/18 05:45 Creatinine 0.79 Est GFR ( Amer) > 60 Est GFR (Non-Af Amer) > 60 Impressions: Lumbar Spine MRI 04/27/18 14:44 IMPRESSION: There is an expansile lesion in the right L3 pedicle and lateral mass with 6 mm of tumor encroachment on the right lateral aspect of the spinal canal. There is also an expansile lesion in the posterior T9 vertebral body with encroachment on the anterior thecal sac and moderate central stenosis. No severe stenosis or her compression. No focal spinal cord signal abnormality or enhancement. Vertebral bodies are otherwise preserved height. Marrow signal is diffusely heterogeneous with scattered irregular enhancement consistent with diffuse metastatic disease. Numerous lesions are present throughout the liver. Chest X-Ray 04/27/18 14:47 IMPRESSION: Cannot exclude left lower lobe pneumonia. Abdomen/Pelvis CT 04/29/18 17:00 IMPRESSION: Progression of bony metastatic disease and epidural tumor in the thoracic and lumbar spine Increase in size of right upper lobe lung metastatic nodule, upper mediastinal adenopathy. Increase in size and number of multiple liver lesions. NORMAL CT OF THE ABDOMEN AND PELVIS WITH ORAL AND INTRAVENOUS CONTRAST. Chest CT 04/29/18 17:00 IMPRESSION: Progression of bony metastatic disease and epidural tumor in the thoracic and lumbar spine Increase in size of right upper lobe lung metastatic nodule, upper mediastinal adenopathy. Increase in size and number of multiple liver lesions. NORMAL CT OF THE ABDOMEN AND PELVIS WITH ORAL AND INTRAVENOUS CONTRAST. Head CT 04/29/18 17:00 IMPRESSION: The previously seen dural-based metastatic lesion in the right frontotemporal region has increased in size, currently measuring 3.5 cm in greatest dimension, previously 2.9 cm in a similar plane of measurement. EVIDENCE OF ACUTE STROKE: NO. Qualifiers - * PATIENT BEING DISCHARGED WITH ANY OF THE FOLLOWING DIAGNOSIS: No Plan Discharge Plan: Hospice care has been arranged and patient is to be discharged home with family today. Will suggest reevaluation of his medications and stopping them as appropriate Time Spent: Greater than 30 Minutes
== END 2018-05-01 16:51 | disposition hospice, home (50) | DRG 193 ==
LOC: ER 13:41 → EH 21:12 → 5 04-28 00:18
PROVIDERS: ADMIT Internal Medicine; ATTEND Internal Medicine
PROC: 30233N1 Transfusion of Nonautologous Red Blood Cells into Peripheral Vein, Percutaneous Approach (ICD-10-PCS; principal; 2018-04-27)
PROC: 3E0F73Z Introduction of Anti-inflammatory into Respiratory Tract, Via Natural or Artificial Opening (ICD-10-PCS; 2018-04-28)
DX: J18.1 Lobar pneumonia, unspecified organism (principal); G93.40 Encephalopathy, unspecified; D61.818 Other pancytopenia; C79.51 Secondary malignant neoplasm of bone; C78.01 Secondary malignant neoplasm of right lung; C78.7 Secondary malignant neoplasm of liver and intrahepatic bile duct; C79.31 Secondary malignant neoplasm of brain; C79.2 Secondary malignant neoplasm of skin; C43.72 Malignant melanoma of left lower limb, including hip; Z66 Do not resuscitate; I10 Essential (primary) hypertension; K21.9 Gastro-esophageal reflux disease without esophagitis; M15.9 Polyosteoarthritis, unspecified; F32.9 Major depressive disorder, single episode, unspecified; G40.909 Epilepsy, unspecified, not intractable, without status epilepticus; G89.29 Other chronic pain; Z79.899 Other long term (current) drug therapy; Z89.422 Acquired absence of other left toe(s); Z87.891 Personal history of nicotine dependence
CPT/HCPCS: 36415; 36430; 70470; 71045; 71260; 72158; 74177; 80048; 80053; 80202; 81001; 82550; 82553; 82565; 82803; 83735; 84100; 84443; 84484; 85025; 86850; 86900; 86901; 86920; 87040; 87086; 93005; 93010; 94640; 94799; 96365; 96366; 96367; 96375; 99285; A9576; G8978-GP; G8979-GP; J0692; J1100; J1170; J1642; J3370; J3480; J3490; J7050; J7060; J7620; P9016

== ENCOUNTER → 2018-04-27 | Outpatient (CLI) | payer MEDICARE, MEDICAID ==
[2018-04-27 17:55] LABS: HEMATOCRIT 23.9 % (37.9-51.0); HEMOGLOBIN 8.3 g/dL (13.5-17.0); MEAN CORPUSCULAR HEMOGLOBIN 28.3 pg (27.0-33.4); MEAN CORPUSCULAR HGB CONC 34.8 g/dL (32.0-36.0); MEAN CORPUSCULAR VOLUME 81 fl (80-97); RED BLOOD COUNT 2.94 10^6/uL (4.35-5.55); RED CELL DISTRIBUTION WIDTH 15.1 % (11.5-14.0); WHITE BLOOD COUNT 2.6 10^3/uL (4.0-10.5)
[2018-04-27 18:15] LABS: PLATELET COUNT 48 10^3/uL (150-450)
[2018-04-27 18:24] LABS: ABSOLUTE LYMPHOCYTES# (MANUAL) 0.5 10^3/uL (0.5-4.7); ABSOLUTE MONOCYTES # (MANUAL) 0.1 10^3/uL (0.1-1.4); BAND NEUTROPHILS % (MANUAL) 5 % (3-5); BASOPHILS % (MANUAL) 0 % (0-2); EOSINOPHILS % (MANUAL) 0 % (0-6); LYMPHOCYTES % (MANUAL) 19 % (13-45); METAMYELOCYTES % (MANUAL) 2 % (0); MONOCYTES % (MANUAL) 5 % (3-13); NUCLEATED RED BLOOD CELLS 1 /100 WBC (0); SEGMENTED NEUTROPHILS % (MAN) 68 % (42-78); TOTAL CELLS COUNTED 100
[2018-04-27 18:25] LABS: PLATELET COMMENT DECREASED
[2018-04-27 18:33] LABS: MYELOCYTES % (MANUAL) 1 % (0)
[2018-04-27 18:34] LABS: ANISOCYTOSIS SLIGHT; OVALOCYTES SLIGHT; POIKILOCYTOSIS SLIGHT; POLYCHROMASIA SLIGHT
[2018-04-30 14:55] LABS: PATH REVIEW PATHOLOGIST REVIEWED
== END ==
LOC: OD 15:58
PROVIDERS: ATTEND Internal Medicine
DX: C43.70 Malignant melanoma of unspecified lower limb, including hip (principal)
CPT/HCPCS: 36415; 85025